=== PATIENT | female | born 1980 | race American Indian/Alaskan Native ===

== ENCOUNTER 2017-02-17 17:14 | Emergency (ER) | payer MEDICAID ==
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
[2017-02-17] MEDS ORDERED: Magnesium Sulfate (4.06 MEQ/ML) 1 GM/2 ML SDV ONE (18:10)
[2017-02-17] MEDS ORDERED: Folic Acid 50 MG/10 ML MDV ONE (18:11)
[2017-02-17] MEDS ORDERED: Thiamine 200 MG/2 ML MDV ONE (18:11)
[2017-02-17] MEDS ORDERED: MVI, Adult with Vitamin K 10 ML SDV IV ONE (18:12)
[2017-02-17] MEDS ORDERED: MVI, Adult with Vitamin K 10 ML, Thiamine 100 MG, Folic Acid 1 MG, Magnesium Sulfate 3 ... IV SCH ×5 (18:15)
[2017-02-17 20:12] VITALS: BP 106/60
== END 2017-02-17 22:30 | disposition home or self-care (01) ==
LOC: JP.ED 17:14
DX: F10.220 Alcohol dependence with intoxication, uncomplicated (principal); Y90.8 Blood alcohol level of 240 mg/100 ml or more; F17.210 Nicotine dependence, cigarettes, uncomplicated
CPT/HCPCS: 36415; 80048; 80305; 81001; 85025; 96365; 96366; 99285; G0480; J3411; J3475; J7040; 99284; J3490; J7030

== ENCOUNTER 2017-04-10 07:12 | Emergency (ER) | payer MEDICAID ==
[2017-04-10] MEDS ORDERED: Ondansetron 4 MG/2 ML SDV IM ONE (08:06)
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
[2017-04-10 08:50] VITALS: BP 110/72
== END 2017-04-10 08:58 | disposition left against medical advice (07) ==
LOC: JP.ED 07:12
DX: F10.129 Alcohol abuse with intoxication, unspecified (principal); Y90.6 Blood alcohol level of 120-199 mg/100 ml; F17.210 Nicotine dependence, cigarettes, uncomplicated
CPT/HCPCS: 36415; 80053; 80305; 81001; 83690; 85025; 96372; 99284; G0480; J2405

== ENCOUNTER 2017-05-02 06:05 | Emergency (ER) | payer MEDICAID ==
[2017-05-02 06:14] VITALS: BP 140/84
[2017-05-02] MEDS ORDERED: LORazepam 2 MG/ML SDV IVPUSH ONE (06:35)
[2017-05-02] MEDS ORDERED: Ondansetron 4 MG/2 ML SDV IVPUSH ONE (06:41)
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
[2017-05-02] MEDS ORDERED: Sodium Chloride 0.9% 1,000 ML IV SCH (06:45)
== END 2017-05-02 08:00 | disposition left against medical advice (07) ==
LOC: JP.ED 06:05
DX: F10.10 Alcohol abuse, uncomplicated (principal); Y90.6 Blood alcohol level of 120-199 mg/100 ml; F17.210 Nicotine dependence, cigarettes, uncomplicated; F41.9 Anxiety disorder, unspecified; F32.9 Major depressive disorder, single episode, unspecified
CPT/HCPCS: 36415; 80053; 80305; 81001; 85025; 87086; 96374; 96375; 99284; G0480

== ENCOUNTER 2017-07-12 01:22 | Emergency (ER) | payer MEDICAID ==
[2017-07-12 02:13] VITALS: BP 117/88
== END 2017-07-12 02:36 | disposition left against medical advice (07) ==
LOC: JP.ED 01:22
DX: Z53.21 Procedure and treatment not carried out due to patient leaving prior to being seen by health care provider (principal)

== ENCOUNTER 2017-07-12 02:50 | Emergency (ER) | payer MEDICAID ==
[2017-07-12 03:02] VITALS: BP 117/88
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
== END 2017-07-12 03:34 ==
LOC: JP.ED 02:50
DX: F10.129 Alcohol abuse with intoxication, unspecified (principal)
CPT/HCPCS: 36415; 99285; G0480

== ENCOUNTER 2017-07-12 04:01 | Emergency (ER) | payer MEDICAID | END 2017-07-12 04:13 | disposition left against medical advice (07) | LOC: JP.ED 04:01 | DX: Z53.21 Procedure and treatment not carried out due to patient leaving prior to being seen by health care provider (principal) ==

== ENCOUNTER 2017-10-29 17:30 | Emergency (ER) | payer SELFPAY ==
[2017-10-29] MEDS ORDERED: Ondansetron 4 MG/2 ML SDV IVPUSH ONE (17:57)
[2017-10-29] MEDS ORDERED: Pantoprazole 40 MG Vial IVPUSH ONE (17:57)
[2017-10-29] MEDS ORDERED: Sodium Chloride 0.9% 1,000 ML IV ONE (17:57)
[2017-10-29] MEDS ORDERED: Sodium Chloride 0.9% 10 ML Syringe FLUSH PRN (17:57)
[2017-10-29 18:08] VITALS: BP 128/102
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
[2017-10-29 18:35] LABS: ACETAMINOPHEN < 2.0 ug/mL (10.0-30.0)
== END 2017-10-29 19:05 | disposition left against medical advice (07) ==
LOC: JP.ED 17:30
DX: F10.10 Alcohol abuse, uncomplicated (principal); Y90.8 Blood alcohol level of 240 mg/100 ml or more
CPT/HCPCS: 36415; 80053; 85025; 87081; 87430; 99283; G0480

== ENCOUNTER 2017-10-29 20:48 | Emergency (ER) | payer SELFPAY ==
[2017-10-29 20:59] VITALS: BP 122/94
[2017-10-29] MEDS ORDERED: Ondansetron 4 MG Tab.DIS PO ONE (21:19)
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
[2017-10-29] MEDS ORDERED: Pantoprazole 40 MG Tab.CR PO ONE (21:41)
[2017-10-30] MEDS ORDERED: Pantoprazole 40 MG Tab.CR PO ONE (21:19)
== END 2017-10-29 22:26 | disposition home or self-care (01) ==
LOC: JP.ED 20:48
DX: F10.10 Alcohol abuse, uncomplicated (principal); Y90.8 Blood alcohol level of 240 mg/100 ml or more; Z87.891 Personal history of nicotine dependence
CPT/HCPCS: 36415; 80305; 81003; 99284; A9270; G0480

== ENCOUNTER 2017-11-01 15:33 | Emergency (ER) | payer SELFPAY ==
[2017-11-01 15:49] VITALS: BP 110/75
== END 2017-11-01 16:24 | disposition left against medical advice (07) ==
LOC: JP.ED 15:33
DX: Z53.20 Procedure and treatment not carried out because of patient's decision for unspecified reasons (principal)

== ENCOUNTER 2017-11-13 13:53 | Emergency (ER) | payer SELFPAY ==
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
[2017-11-13 14:21] VITALS: BP 115/84
== END 2017-11-13 14:56 | disposition home or self-care (01) ==
LOC: JP.ED 13:53
DX: F10.10 Alcohol abuse, uncomplicated (principal); Y90.8 Blood alcohol level of 240 mg/100 ml or more; Z79.899 Other long term (current) drug therapy
CPT/HCPCS: 36415; 80048; 80305; 81001; 85027; 99284; G0480; 99282

== ENCOUNTER 2018-04-26 07:33 | Emergency (ER) | payer MEDICAID, OTHER ==
[2018-04-26 07:38] VITALS: BP 100/59
[2018-04-26] MEDS ORDERED: Ondansetron 4 MG Tab.DIS PO ONE (07:47)
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
[2018-04-26] MEDS ORDERED: Ketorolac 60 MG/2 ML SDV IM ONE (08:36)
== END 2018-04-26 09:59 | disposition home or self-care (01) ==
LOC: JP.ED 07:33
DX: F10.229 Alcohol dependence with intoxication, unspecified (principal); Z79.899 Other long term (current) drug therapy; Z87.891 Personal history of nicotine dependence; Y90.4 Blood alcohol level of 80-99 mg/100 ml
CPT/HCPCS: 36415; 80053; 80305; 81001; 85025; 96372; 99284; A9270; G0480; J1885

== ENCOUNTER 2018-08-08 22:06 | Emergency (ER) | payer MEDICAID ==
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
[2018-08-08] MEDS ORDERED: Aluminum Hydroxide/Magnesium Hydroxide/Simethicone Susp 30 ML Cup PO ONE (22:56)
[2018-08-08] MEDS ORDERED: Acetaminophen 500 MG Tab PO ONE (22:56)
[2018-08-08] MEDS ORDERED: Sodium Chloride 0.9% 10 ML Syringe FLUSH PRN (23:00)
--- NOTE | 2018-08-08 23:31 | CRLCT ---
INDICATION: Seizure TECHNIQUE: CT Head without i.v. contrast. COMPARISON: 01/22/2012 FINDINGS: CSF space: The ventricles are normal for age. Brain: No evidence of mass, acute infarction or hemorrhage is seen. No mass-effect or midline shift is seen. The brain parenchyma is otherwise normal in appearance with preservation of the charles-white matter junction. Calvarium: Left frontal sinus fluid is present without significant interval change. The mastoid air cells are clear. The visualized orbits are grossly unremarkable. The calvarium is unremarkable in appearance with no fractures identified. IMPRESSION: 1. No evidence of acute infarction, intracranial hemorrhage, or mass-effect seen. Dictated by Chris Diaz MD @ 08/08/2018 11:27:38 PM Please note that all CT scans at this facility use dose modulation, iterative reconstruction, and/or weight-based dosing when appropriate to reduce radiation dose to as low as reasonably achievable. Dictated by: Chris Diaz MD @ 08/08/2018 23:30:09 (Electronically Signed)
[2018-08-08] MEDS ORDERED: LORazepam 1 MG Tab PO ONE (23:55)
[2018-08-09] MEDS ORDERED: Magnesium Sulfate/Water 2 GM in Premix Bag 1 BAG IV ONE (00:31)
[2018-08-09] MEDS ORDERED: Magnesium Oxide 400 MG Tab PO ONE (00:31)
[2018-08-09 01:24] VITALS: BP 112/79
== END 2018-08-09 03:41 | disposition home or self-care (01) ==
LOC: JP.ED 22:06
DX: R56.9 Unspecified convulsions (principal); E83.42 Hypomagnesemia
CPT/HCPCS: 36415; 70450; 80048; 83735; 96365; 96366; 99284; A9270; J3475

== ENCOUNTER 2018-12-04 19:36 | Emergency (ER) | payer MEDICAID ==
[2018-12-04] MEDS ORDERED: Ketorolac 30 MG/ML SDV IM ONE (19:41)
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
[2018-12-04 19:54] VITALS: BP 103/78; PULSE 86
== END 2018-12-04 22:46 | disposition home or self-care (01) ==
LOC: JP.ED 19:36
DX: F10.120 Alcohol abuse with intoxication, uncomplicated (principal); G43.001 Migraine without aura, not intractable, with status migrainosus
CPT/HCPCS: 96372; 99284; J1885

== ENCOUNTER 2018-12-22 22:52 | Emergency (ER) | payer MEDICAID ==
[2018-12-22 23:01] VITALS: BP 128/96; PULSE 88
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
== END 2018-12-22 23:46 | disposition other institution (70) ==
LOC: JP.ED 22:52
DX: F10.920 Alcohol use, unspecified with intoxication, uncomplicated (principal); F17.210 Nicotine dependence, cigarettes, uncomplicated
CPT/HCPCS: 36415; 80305-QW; 99285; G0480

== ENCOUNTER 2019-01-05 23:54 | Emergency (ER) | payer MEDICAID ==
[2019-01-06 00:01] VITALS: BP 105/65; PULSE 71
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
[2019-01-06] MEDS ORDERED: Acetaminophen 500 MG Tab PO ONE (09:06)
== END 2019-01-06 09:26 | disposition left against medical advice (07) ==
LOC: JP.ED 23:54
DX: F10.920 Alcohol use, unspecified with intoxication, uncomplicated (principal); F17.210 Nicotine dependence, cigarettes, uncomplicated
CPT/HCPCS: 36415; 80053; 80305; 80320; 84484; 85025; 99285; A9270; G0480

== ENCOUNTER 2019-01-08 18:11 | Emergency (ER) | payer MEDICAID ==
[2019-01-08] MEDS ORDERED: LORazepam 1 MG Tab PO ONE (19:15)
[2019-01-08] MEDS ORDERED: Sodium Chloride 0.9% 1,000 ML IV SCH ×2 (19:30→20:45)
[2019-01-08] MEDS ORDERED: Levofloxacin/Dextrose 5%-Water 500 MG in Premix Bag 1 BAG IV ONE (19:40)
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
[2019-01-08 21:17] VITALS: BP 113/78; PULSE 96
== END 2019-01-08 21:17 | disposition home or self-care (01) ==
LOC: JP.ED 18:11
DX: E86.0 Dehydration (principal); F10.230 Alcohol dependence with withdrawal, uncomplicated; N39.0 Urinary tract infection, site not specified; F17.210 Nicotine dependence, cigarettes, uncomplicated
CPT/HCPCS: 36415; 80053; 81001; 84484; 85025; 87086; 93005; 96365; 99285; A9270; J1956; J7030

== ENCOUNTER 2019-06-25 10:13 | Observation (INO) | payer MEDICAID ==
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
[2019-06-25] MEDS ORDERED: MVI, Adult with Vitamin K 10 ML, Thiamine 200 MG, Folic Acid 1 MG, Magnesium Sulfate 2 ... IV ONE ×10 (11:48→12:30)
[2019-06-25] MEDS ORDERED: Sodium Chloride 0.9% 10 ML Syringe FLUSH PRN (11:48)
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
[2019-06-25] MEDS ORDERED: Ondansetron 4 MG Tab.DIS PO PRN (14:03)
[2019-06-25] MEDS ORDERED: Ketorolac 30 MG/ML SDV IVPUSH PRN (14:03)
[2019-06-25] MEDS ORDERED: Ibuprofen 600 MG Tab PO PRN (14:03)
[2019-06-25] MEDS ORDERED: LORazepam 2 MG/ML SDV IVPUSH PRN (14:03)
[2019-06-25] MEDS ORDERED: LORazepam 2 MG/ML SDV IV SCH (14:03)
[2019-06-25] MEDS ORDERED: Magnesium Hydroxide 400 MG/5 ML Susp 30 ML Cup PO PRN (14:03)
[2019-06-25] MEDS ORDERED: Ondansetron 4 MG/2 ML SDV IV PRN (14:03)
[2019-06-25] MEDS: NS + KCl 20mEq/L 1,000 ML IV SCH ×2 (14:23→22:25)
[2019-06-25] MEDS ORDERED: Pantoprazole 40 MG Vial IV ONE (14:30)
[2019-06-25] MEDS: Thiamine 100 MG Tab PO SCH (14:59)
[2019-06-25] MEDS: Folic Acid 1 MG Tab PO SCH (14:59)
[2019-06-25] MEDS: Gabapentin 400 MG Cap PO SCH ×2 (14:59→23:34)
[2019-06-25] MEDS: LORazepam 1 MG Tab PO SCH (20:12)
[2019-06-25] MEDS: Melatonin 3 MG Tab PO SCH (23:34)
[2019-06-26] MEDS: LORazepam 1 MG Tab PO SCH ×7 (02:54→21:00)
[2019-06-26] MEDS: NS + KCl 20mEq/L 1,000 ML IV SCH (06:27)
[2019-06-26] MEDS: Acetaminophen 325 MG Tab PO PRN ×2 (07:24→17:05)
[2019-06-26] MEDS: Gabapentin 400 MG Cap PO SCH ×3 (08:59→21:00)
[2019-06-26] MEDS: Folic Acid 1 MG Tab PO SCH (08:59)
[2019-06-26] MEDS: Thiamine 100 MG Tab PO SCH (09:00)
--- NOTE | 2019-06-26 11:14 | CR ---
CHEST: Portable 06/25/2019 at 10:56 AM CLINICAL HISTORY:Chest pain COMPARISON:2018 FINDINGS: The heart size, pulmonary vascularity and hilar structures are normal. No infiltrate effusion or pneumothorax is seen. IMPRESSION: No acute cardiopulmonary process.
--- NOTE | 2019-06-26 14:26 | PCM.PN ---
- General Info Date of Service: 06/26/19 Subjective Update: Ms. Herrmann is a 39-year-old woman who was admitted through the emergency department last night because of severe alcohol intoxication. Beds were not available at [facility]. They did agree to accept her in transfer today for detox, but now today unfortunately have no available beds. She has been stable thus far, is starting to show some mild symptoms of alcohol withdrawal. Functional Status: Reports: Tolerating Diet, Ambulating, Urinating - Review of Systems General: Reports: Weakness. Denies: Fever, Chills Pulmonary: Reports: No Symptoms Cardiovascular: Reports: No Symptoms Gastrointestinal: Reports: No Symptoms - Patient Data Vitals - Most Recent: Last Vital Signs Temp 98.6 F 06/26/19 12:00 Pulse 98 06/26/19 14:00 Resp 14 06/26/19 14:00 BP 123/89 06/26/19 14:00 Pulse Ox 97 06/26/19 14:00 Weight - Most Recent: 152 lb I&O - Last 24 Hours: Intake & Output 06/25/19 06/26/19 06/26/19 22:59 06:59 14:59 Intake Total 508 1480 3160 Balance 508 1480 3160 Lab Results Last 24 Hours: Laboratory Results - last 24 hr 06/26/19 06/26/19 06/26/19 Range/Units 04:28 04:28 04:28 WBC 5.7 (4.5-11.0) K/uL RBC 3.74 (3.30-5.50) M/uL Hgb 9.4 L D (12.0-15.0) g/dL Hct 30.2 L (36.0-48.0) % MCV 81 (80-98) fL MCH 25 L (27-31) pg MCHC 31 L (32-36) % Plt Count 97 L (150-400) K/uL Sodium 138 L (140-148) mmol/L Potassium 3.8 (3.6-5.2) mmol/L Chloride 104 (100-108) mmol/L Carbon Dioxide 24 (21-32) mmol/L Anion Gap 13.8 (5.0-14.0) mmol/L BUN 3 L (7-18) mg/dL Creatinine 0.6 (0.6-1.0) mg/dL Est Cr Clr Drug Dosing 104.10 mL/min Estimated GFR (MDRD) > 60 (>60) Glucose 77 (74-106) mg/dL Calcium 7.0 L (8.5-10.1) mg/dL Total Bilirubin 0.5 D (0.2-1.0) mg/dL AST 48 H (15-37) U/L ALT 31 (12-78) U/L Alkaline Phosphatase 86 (46-116) U/L Total Protein 5.8 L (6.4-8.2) g/dL Albumin 2.2 L (3.4-5.0) g/dL Globulin 3.6 H (2.3-3.5) g/dL Albumin/Globulin Ratio 0.6 L (1.2-2.2) Lipase 705 H (73-393) U/L Ethyl Alcohol 87 mg/dL Med Orders - Current: Current Medications Acetaminophen (Tylenol) 650 mg PO Q4H PRN PRN Reason: Pain (Mild 1-3)/fever Last Admin: 06/26/19 07:24 Dose: 650 mg Folic Acid (Folic Acid) 1 mg PO DAILY [facility] Last Admin: 06/26/19 08:59 Dose: 1 mg Gabapentin (Neurontin) 400 mg PO TID [facility] Last Admin: 06/26/19 14:07 Dose: 400 mg Ibuprofen (Motrin) 600 mg PO Q6H PRN PRN Reason: Pain/Fever Last Admin: 06/26/19 03:57 Dose: 600 mg Ketorolac Tromethamine (Toradol) 30 mg IVPUSH Q6H PRN PRN Reason: Pain (moderate 4-6) Stop: 06/30/19 13:46 Last Admin: 06/25/19 19:24 Dose: 30 mg Lorazepam (Ativan) 0.5 mg IVPUSH Q4H PRN PRN Reason: Nausea/Vomiting Lorazepam (Ativan) 0 mg PO ASDIRECTED [facility]; Protocol Last Admin: 06/26/19 14:14 Dose: 1 mg Lorazepam (Ativan) 0 mg IV ASDIRECTED [facility]; Protocol Magnesium Hydroxide (Milk Of Magnesia) 30 ml PO Q12H PRN PRN Reason: Constipation Melatonin (Melatonin) 9 mg PO BEDTIME [facility] Last Admin: 06/25/19 23:34 Dose: Not Given Ondansetron HCl (Zofran Odt) 4 mg PO Q6H PRN PRN Reason: Nausea able to take PO Ondansetron HCl (Zofran) 4 mg IV Q6H PRN PRN Reason: Nausea/Vomiting Senna/Docusate Sodium (Senna Plus) 1 tab PO BID PRN PRN Reason: Constipation Sodium Chloride (Saline Flush) 10 ml FLUSH ASDIRECTED PRN PRN Reason: Keep Vein Open Last Admin: 06/25/19 12:27 Dose: 10 ml Thiamine HCl (Vitamin B-1) 100 mg PO DAILY [facility] Last Admin: 06/26/19 09:00 Dose: 100 mg Discontinued Medications Multivitamins/Minerals 10 ml/Thiamine HCl 200 mg/ Folic Acid 1 mg/ Magnesium Sulfate 2 gm/ Dextrose/Lactated Ringer' s 1,016.2 mls @ 500 mls/hr IV ONETIME ONE Stop: 06/25/19 14:31 Last Admin: 06/25/19 12:27 Dose: 500 mls/hr Potassium Chloride/Sodium Chloride (Normal Saline With 20 Meq Kcl) 1,000 mls @ 125 mls/hr IV ASDIRECTED [facility] Last Admin: 06/26/19 06:27 Dose: 125 mls/hr Pantoprazole Sodium (Protonix Iv) 40 mg IV ONETIME ONE Stop: 06/25/19 14:31 Last Admin: 06/25/19 14:59 Dose: 40 mg - Exam General: Alert, Oriented, Cooperative, Mild Distress Lungs: Clear to Auscultation, Normal Respiratory Effort Cardiovascular: Regular Rate, Regular Rhythm, No Murmurs GI/Abdominal Exam: Soft, Non-Tender, No Organomegaly, No Distention Extremities: Non-Tender, No Pedal Edema Sepsis Event Note - Evaluation Sepsis Screening Result: No Definite Risk - Focused Exam Vital Signs: Vital Signs Temp Pulse Resp BP BP Pulse Ox 06/26/19 14:00 98 14 123/89 97 06/26/19 12:00 98.6 F 94 20 127/84 94 L 06/26/19 08:30 93 20 118/77 06/26/19 07:35 99.1 F 111 H 14 115/73 94 L 06/26/19 07:00 94 L 06/26/19 05:55 90 06/26/19 03:55 99.8 F 89 14 113/72 93 L Date Exam was Performed: 06/26/19 Time Exam was Performed: 14:23 - Problem List Review Problem List Initiated/Reviewed/Updated: Yes - My Orders Last 24 Hours: My Active Orders 06/26/19 10:31 Convert IV to Saline Lock [OM.PC] Routine 06/26/19 Breakfast Regular Diet [DIET] - Plan Plan:: ASSESSMENT AND PLAN Alcohol abuse with severe alcohol intoxication-is more conversant this morning but is starting to show some evidence of alcohol withdrawal -Saline lock -CIWA protocol with lorazepam -3 times daily gabapentin -Melatonin at bedtime -Supplement thiamine and folate -transfer to detox when a bed is available Hypokalemia-resolved Maintenance issues - - DVT prophylaxis -mechanical - GI prophylaxis -IV PPI - Nutrition -clear liquids - Back catheter -not indicated CODE STATUS -full code Admission justification -patient will be referred observation status for hydration and monitoring while she willam up Disposition -I would anticipate discharge to detox at [facility] tomorrow Primary care physician -none
[2019-06-26] MEDS ORDERED: Albuterol 8 GM Inhaler INH PRN (14:29)
[2019-06-26] MEDS: Melatonin 3 MG Tab PO SCH (21:00)
[2019-06-27] MEDS: LORazepam 1 MG Tab PO SCH (07:00)
[2019-06-27 08:04] VITALS: BP 117/86; PULSE 90
[2019-06-27] MEDS: Folic Acid 1 MG Tab PO SCH (08:59)
[2019-06-27] MEDS: Acetaminophen 325 MG Tab PO PRN (08:59)
[2019-06-27] MEDS: Thiamine 100 MG Tab PO SCH (08:59)
[2019-06-27] MEDS: Gabapentin 400 MG Cap PO SCH (08:59)
--- NOTE | 2019-06-27 10:46 | PCM.DCSUM1 ---
Discharge Summary - Hospital Course Brief History: Ms. Herrmann is a 39-year-old woman who was admitted through the emergency department with acute alcohol intoxication and expected alcohol withdrawal. - Discharge Data Discharge Date: 06/27/19 Discharge Disposition: Home, Self-Care 01 Condition: Fair - Referral to Home Health Primary Care Physician: PCP None - Discharge Diagnosis/Problem(s) (1) Alcohol intoxication SNOMED Code(s): 75575808 ICD Code: F10.929 - ALCOHOL USE, UNSPECIFIED WITH INTOXICATION, UNSPECIFIED Status: Acute Current Visit: Yes Qualifiers: Complication of substance-induced condition: uncomplicated Qualified Code(s ): F10.920 - Alcohol use, unspecified with intoxication, uncomplicated (2) Alcohol withdrawal SNOMED Code(s): 744468177 ICD Code: F10.239 - ALCOHOL DEPENDENCE WITH WITHDRAWAL, UNSPECIFIED Status : Acute Current Visit: No - Patient Summary/Data Hospital Course: Ms. Herrmann presented to the emergency room with chest pain. She was extremely intoxicated and is unable to provide much in the way of history because of her severe intoxication. She was able to tell me that her chest has been bothering her for about 2 weeks. When asked to point to where the pain hurts she makes a big [place] around the left side of her chest and left upper quadrant. She is not able to describe the pain. She is not able to tell me the severity of the pain. She is been drinking to try to make it better. She says she is been drinking heavily for a long time but she is not sure just how long. Then for the most part she was not able to answer any other questions because she kept falling asleep. Work-up in the emergency room revealed severe alcohol intoxication with a blood alcohol level of 572. She has mild thrombocytopenia and a mild elevation of her lipase. The plan was for detox but no female beds are available. She will be admitted here for detox. On admission she was given IV fluids for hydration as well as started on gabapentin regimen 400 mg 3 times daily for 4 days then 200 mg 3 times daily for an additional 4 days. She was started on alcohol withdrawal protocol and did show evidence of alcohol withdrawal during hospitalization requiring use of lorazepam. Over the next 48 hours no beds were available at local detox. Plan was to keep her an additional day to wait for an open bed. Patient refused this plan despite encouragement to stay in the hospital for ongoing management. Per her request she will be discharged home and will continue the gabapentin regimen until it is completed. She is encouraged to avoid all alcohol use and a follow-up appointment will be made with primary care within 1 week. Activity will be as tolerated. - Patient Instructions Diet: Usual Diet as Tolerated, No Alcoholic Beverages Activity: As Tolerated Other/Special Instructions: Please schedule follow-up appointment with primary care at [facility], within 1 week. - Discharge Plan *PRESCRIPTION DRUG MONITORING PROGRAM REVIEWED*: Not Applicable *COPY OF PRESCRIPTION DRUG MONITORING REPORT IN PATIENT PAULA: Not Applicable Prescriptions/Med Rec: Gabapentin [Neurontin] 400 mg PO Q8H #48 cap Home Medications: Home Meds Gabapentin [Neurontin] 400 mg PO Q8H #48 cap 06/27/19 [Rx] - Discharge Summary/Plan Comment DC Time >30 min.: No - Patient Data Vitals - Most Recent: Last Vital Signs Temp 98.6 F 06/27/19 08:00 Pulse 90 06/27/19 08:00 Resp 20 06/27/19 08:00 BP 117/86 06/27/19 08:00 Pulse Ox 94 L 06/27/19 08:00 Weight - Most Recent: 152 lb I&O - Last 24 hours: Intake & Output 06/26/19 06/27/19 06/27/19 22:59 06:59 14:59 Intake Total 1500 400 Balance 1500 400 Med Orders - Current: Current Medications Acetaminophen (Tylenol) 650 mg PO Q4H PRN PRN Reason: Pain (Mild 1-3)/fever Last Admin: 06/27/19 08:59 Dose: 650 mg Albuterol (Ventolin Hfa) 0 gm INH Q4H PRN PRN Reason: Dyspnea Folic Acid (Folic Acid) 1 mg PO DAILY [facility] Last Admin: 06/27/19 08:59 Dose: 1 mg Gabapentin (Neurontin) 400 mg PO TID [facility] Last Admin: 06/27/19 08:59 Dose: 400 mg Ibuprofen (Motrin) 600 mg PO Q6H PRN PRN Reason: Pain/Fever Last Admin: 06/26/19 03:57 Dose: 600 mg Ketorolac Tromethamine (Toradol) 30 mg IVPUSH Q6H PRN PRN Reason: Pain (moderate 4-6) Stop: 06/30/19 13:46 Last Admin: 06/25/19 19:24 Dose: 30 mg Lorazepam (Ativan) 0.5 mg IVPUSH Q4H PRN PRN Reason: Nausea/Vomiting Lorazepam (Ativan) 0 mg PO ASDIRECTED [facility]; Protocol Last Admin: 06/27/19 07:00 Dose: 1 mg Lorazepam (Ativan) 0 mg IV ASDIRECTED [facility]; Protocol Magnesium Hydroxide (Milk Of Magnesia) 30 ml PO Q12H PRN PRN Reason: Constipation Melatonin (Melatonin) 9 mg PO BEDTIME [facility] Last Admin: 06/26/19 21:00 Dose: 9 mg Ondansetron HCl (Zofran Odt) 4 mg PO Q6H PRN PRN Reason: Nausea able to take PO Ondansetron HCl (Zofran) 4 mg IV Q6H PRN PRN Reason: Nausea/Vomiting Senna/Docusate Sodium (Senna Plus) 1 tab PO BID PRN PRN Reason: Constipation Sodium Chloride (Saline Flush) 10 ml FLUSH ASDIRECTED PRN PRN Reason: Keep Vein Open Last Admin: 06/25/19 12:27 Dose: 10 ml Thiamine HCl (Vitamin B-1) 100 mg PO DAILY [facility] Last Admin: 06/27/19 08:59 Dose: 100 mg Discontinued Medications Multivitamins/Minerals 10 ml/Thiamine HCl 200 mg/ Folic Acid 1 mg/ Magnesium Sulfate 2 gm/ Dextrose/Lactated Ringer' s 1,016.2 mls @ 500 mls/hr IV ONETIME ONE Stop: 06/25/19 14:31 Last Admin: 06/25/19 12:27 Dose: 500 mls/hr Potassium Chloride/Sodium Chloride (Normal Saline With 20 Meq Kcl) 1,000 mls @ 125 mls/hr IV ASDIRECTED [facility] Last Admin: 06/26/19 06:27 Dose: 125 mls/hr Pantoprazole Sodium (Protonix Iv) 40 mg IV ONETIME ONE Stop: 06/25/19 14:31 Last Admin: 06/25/19 14:59 Dose: 40 mg - Exam General: Reports: Alert, Oriented, Cooperative, Mild Distress Lungs: Reports: Clear to Auscultation, Normal Respiratory Effort Cardiovascular: Reports: Regular Rate, Regular Rhythm, No Murmurs GI/Abdominal Exam: Soft, Non-Tender, No Organomegaly, No Distention
== END 2019-06-27 11:02 | disposition home or self-care (01) ==
LOC: JP.ED 10:13 → JP.ICU 13:41
PROVIDERS: ADMIT Internal Medicine; ATTEND Hospitalist
DX: F10.229 Alcohol dependence with intoxication, unspecified (principal); F10.239 Alcohol dependence with withdrawal, unspecified; R40.0 Somnolence; E87.6 Hypokalemia; R07.9 Chest pain, unspecified; Y90.0 Blood alcohol level of less than 20 mg/100 ml
CPT/HCPCS: 36415; 71045; 80053; 80307; 83690; 84484; 85025; 85027; 93005; 96365; 99285; A9270; C9113; J1885; J3411; J3475; J3480; J7121; 96361; 96366; 96375; G0378; J3490

== ENCOUNTER 2019-07-17 11:45 | Emergency (ER) | payer MEDICAID, OTHER ==
[2019-07-17 12:04] VITALS: BP 115/88; PULSE 108
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
== END 2019-07-17 12:16 ==
LOC: JP.ED 11:45
DX: F10.120 Alcohol abuse with intoxication, uncomplicated (principal)
CPT/HCPCS: 99284

== ENCOUNTER 2019-07-20 03:16 | Emergency (ER) | payer MEDICAID ==
[2019-07-20 03:31] VITALS: BP 124/90; PULSE 87
[2019-07-20] MEDS ORDERED: LORazepam 1 MG Tab PO ONE (03:41)
[2019-07-20] MEDS ORDERED: Aspirin 325 MG Tab.EC PO ONE (03:42)
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
[2019-07-20] MEDS ORDERED: Potassium Chloride 20 MEQ in Premix Bag 1 BAG IV ONE (04:23)
[2019-07-20] MEDS ORDERED: Lactated Ringers 1,000 ML IV ONE (04:23)
[2019-07-20] MEDS ORDERED: Potassium Chloride 20 MEQ Tab.ER PO ONE (04:23)
[2019-07-20] MEDS ORDERED: Sodium Chloride 0.9% 10 ML Syringe FLUSH PRN (04:24)
== END 2019-07-20 07:16 ==
LOC: JP.ED 03:16
DX: R07.89 Other chest pain (principal); F17.210 Nicotine dependence, cigarettes, uncomplicated
CPT/HCPCS: 36415; 80053; 84484; 85025; 93005; 96365; 96366; 99285; A9270; J3480; J7120

== ENCOUNTER 2019-08-21 14:16 | Emergency (ER) | payer MEDICAID, OTHER ==
[2019-08-21 14:22] VITALS: BP 116/77; PULSE 80
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
== END 2019-08-21 18:47 | disposition home or self-care (01) ==
LOC: JP.ED 14:16
DX: F10.120 Alcohol abuse with intoxication, uncomplicated (principal)
CPT/HCPCS: 36415; 80305-QW; 80307; 99282; 99284

== ENCOUNTER 2019-10-18 13:37 | Emergency (ER) | payer MEDICAID ==
[2019-10-18 13:43] VITALS: BP 110/71; PULSE 101
[2019-10-18] MEDS ORDERED: MVI, Adult with Vitamin K 10 ML, Thiamine 200 MG, Folic Acid 1 MG, Magnesium Sulfate 2 ... IV ONE ×5 (13:57)
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
[2019-10-18] MEDS ORDERED: Potassium Chloride 20 MEQ Tab.ER PO ONE (14:37)
[2019-10-18] MEDS ORDERED: Potassium Chloride 20 MEQ in Premix Bag 1 BAG IV ONE (14:37)
[2019-10-18] MEDS ORDERED: Lactated Ringers 1,000 ML IV ONE (16:46)
== END 2019-10-18 18:21 | disposition home or self-care (01) ==
LOC: JP.ED 13:37
DX: F10.129 Alcohol abuse with intoxication, unspecified (principal); F17.210 Nicotine dependence, cigarettes, uncomplicated; Y99.0 Civilian activity done for income or pay
CPT/HCPCS: 36415; 80053; 80305; 80307; 81001; 85025; 85610; 96361; 96365; 96366; 96368; 99284; A9270; J3411; J3475; J3480; J7120; J7121; J3490

== ENCOUNTER 2021-01-27 20:15 | Emergency (ER) | payer MEDICAID ==
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
[2021-01-28 03:59] VITALS: BP 105/76; PULSE 115
[2021-01-28] MEDS ORDERED: LORazepam 2 MG/ML SDV IM ONE (04:56)
== END 2021-01-28 06:02 | disposition home or self-care (01) ==
LOC: JP.ED 20:15
DX: F10.229 Alcohol dependence with intoxication, unspecified (principal); Y90.8 Blood alcohol level of 240 mg/100 ml or more; Z20.822 Contact with and (suspected) exposure to COVID-19
CPT/HCPCS: 36415; 80053; 80307; 85025; 87635; 96372; 99284; J2060; U0002

== ENCOUNTER 2022-01-28 02:03 | Emergency (ER) | payer MEDICAID ==
[2022-01-28] MEDS ORDERED: Sodium Chloride 0.9% 10 ML Syringe FLUSH PRN (02:11)
[2022-01-28] MEDS ORDERED: Lactated Ringers 1,000 ML IV SCH (02:15)
[2022-01-28 02:38] LABS: ESTIMATED GFR 111 mL/min (>60)
[2022-01-28] MEDS ORDERED: NS + KCl 20mEq/L 1,000 ML IV SCH (03:15)
[2022-01-28 06:41] VITALS: BP 97/71; PULSE 84
== END 2022-01-28 08:10 | disposition home or self-care (01) ==
LOC: JP.ED 02:03
DX: E87.6 Hypokalemia (principal); F10.129 Alcohol abuse with intoxication, unspecified
CPT/HCPCS: 36415; 80053; 80305; 80307; 83605; 83690; 83735; 84703; 85025; 96361; 96365; 96366; 99284; J3480; J3490; J7120

== ENCOUNTER 2022-02-16 22:40 | Emergency (ER) | payer MEDICAID ==
[2022-02-16] MEDS ORDERED: MVI, Adult with Vitamin K 10 ML, Thiamine 100 MG, Folic Acid 1 MG, Magnesium Sulfate 2 ... IV ONE ×5 (22:44)
[2022-02-16] MEDS ORDERED: LORazepam 1 MG Tab PO SCH (22:45)
[2022-02-16 23:14] LABS: ESTIMATED GFR 111 mL/min (>60)
[2022-02-16] MEDS ORDERED: Potassium Chloride 10 MEQ in Premix Bag 1 BAG IV ONE (23:20)
[2022-02-16] MEDS ORDERED: Calcium Gluconate 10% 1 GM/10 ML SDV IVPUSH ONE (23:21)
[2022-02-17] MEDS ORDERED: Potassium Chloride 10 MEQ in Premix Bag 1 BAG IV ONE ×4 (00:42)
[2022-02-17 02:48] VITALS: PULSE 83
[2022-02-17 03:20] VITALS: BP 91/64
[2022-02-17] MEDS ORDERED: LORazepam 1 MG Tab PO ONE (06:29)
== END 2022-02-17 06:50 | disposition home or self-care (01) ==
LOC: JP.ED 22:40
DX: F10.220 Alcohol dependence with intoxication, uncomplicated (principal); E87.6 Hypokalemia; E83.51 Hypocalcemia; Y90.8 Blood alcohol level of 240 mg/100 ml or more; Z20.822 Contact with and (suspected) exposure to COVID-19
CPT/HCPCS: 36415; 80053; 80307; 85025; 87635; 96365; 96366; 96367; 96375; 99284; A9270; J0610; J3411; J3475; J3480; J7030; J3490; U0002

== ENCOUNTER 2022-02-26 17:09 | Emergency (ER) | payer MEDICAID ==
[2022-02-26] MEDS ORDERED: LORazepam 0.5 MG Tab PO ONE (18:25)
[2022-02-26 18:39] LABS: ESTIMATED GFR 111 mL/min (>60)
[2022-02-26] MEDS ORDERED: Sodium Chloride 0.9% 1,000 ML IV ONE (18:56)
[2022-02-26] MEDS ORDERED: Folic Acid 1 MG Tab PO ONE (18:56)
[2022-02-26] MEDS ORDERED: Potassium Chloride 20 MEQ Tab.ER PO ONE (18:57)
[2022-02-27] MEDS: LORazepam 1 MG Tab PO SCH ×3 (01:48→09:19)
[2022-02-27 07:24] VITALS: BP 121/86; PULSE 83
== END 2022-02-27 11:40 | disposition left against medical advice (07) ==
LOC: JP.ED 17:09
DX: F10.229 Alcohol dependence with intoxication, unspecified (principal); Z20.822 Contact with and (suspected) exposure to COVID-19; Y90.6 Blood alcohol level of 120-199 mg/100 ml
CPT/HCPCS: 36415; 80053; 80143; 80179; 80305; 80307; 82607; 82746; 83690; 83735; 84443; 85025; 87635; 96360; 99285; A9270; J7030; 99283; U0002

== ENCOUNTER 2022-03-09 16:30 | Emergency (ER) | payer MEDICAID ==
[2022-03-09 17:05] VITALS: BP 125/91; PULSE 105
== END 2022-03-09 17:40 | disposition other institution (70) ==
LOC: JP.ED 16:30
DX: F10.129 Alcohol abuse with intoxication, unspecified (principal); Z86.16 Personal history of COVID-19; Z72.0 Tobacco use; Z20.822 Contact with and (suspected) exposure to COVID-19
CPT/HCPCS: 36415; 80305-QW; 80307; 99283; U0002

== ENCOUNTER 2022-03-23 21:05 | Emergency (ER) | payer MEDICAID ==
[2022-03-24 06:32] VITALS: BP 105/65; PULSE 75
== END 2022-03-24 09:35 | disposition other institution (70) ==
LOC: JP.ED 21:05
DX: F10.220 Alcohol dependence with intoxication, uncomplicated (principal); Z86.16 Personal history of COVID-19; Y90.8 Blood alcohol level of 240 mg/100 ml or more; Z20.822 Contact with and (suspected) exposure to COVID-19
CPT/HCPCS: 36415; 80305-QW; 80307; 93005; 99284; 99285; U0002

== ENCOUNTER 2022-04-24 17:44 | Emergency (ER) | payer MEDICAID ==
[2022-04-25] MEDS ORDERED: LORazepam 2 MG/ML SDV IVPUSH ONE ×2 (00:51→07:05)
[2022-04-25] MEDS ORDERED: Acetaminophen 500 MG Tab PO ONE (09:32)
[2022-04-25] MEDS ORDERED: Ondansetron 4 MG/2 ML SDV IVPUSH ONE (10:38)
[2022-04-25 10:55] VITALS: BP 103/68; PULSE 104
== END 2022-04-25 11:01 ==
LOC: EEVIPCON 17:44 → JP.ED 17:44
DX: S70.01XA Contusion of right hip, initial encounter (principal); S80.02XA Contusion of left knee, initial encounter; F10.229 Alcohol dependence with intoxication, unspecified; Y90.6 Blood alcohol level of 120-199 mg/100 ml; Z20.822 Contact with and (suspected) exposure to COVID-19; W19.XXXA Unspecified fall, initial encounter
CPT/HCPCS: 36415; 70450; 73502; 73562; 73610; 80305; 80307; 87635; 96374; 96375; 96376; 99285; A9270; J2060; J2405; U0002

== ENCOUNTER 2022-05-08 14:29 | Emergency (ER) | payer MEDICAID ==
[2022-05-08] MEDS ORDERED: Sodium Chloride 0.9% 10 ML Syringe FLUSH PRN ×2 (14:32→16:59)
[2022-05-08] MEDS ORDERED: LORazepam 2 MG/ML SDV IVPUSH ONE (14:33)
[2022-05-08 15:13] LABS: ESTIMATED GFR 111 mL/min (>60)
[2022-05-08] MEDS ORDERED: Thiamine 100 MG Tab PO ONE (15:17)
[2022-05-08] MEDS ORDERED: Folic Acid 1 MG Tab PO ONE (15:17)
[2022-05-08] MEDS ORDERED: Multivitamins with Iron/Calcium/Folic Acid/Minerals Tab PO ONE (15:17)
[2022-05-08] MEDS ORDERED: Potassium Chloride 20 MEQ Tab.ER PO ONE (15:38)
[2022-05-08] MEDS ORDERED: Calcium Carbonate 500 MG Tab.Chew PO ONE (15:38)
[2022-05-08] MEDS ORDERED: Sodium Chloride 0.9% 1,000 ML IV ONE (16:59)
[2022-05-08 18:11] VITALS: BP 106/51; PULSE 91
[2022-05-08] MEDS ORDERED: Acetaminophen 500 MG Tab PO ONE (20:47)
== END 2022-05-08 21:30 | disposition other institution (70) ==
LOC: JP.ED 14:29
DX: F10.220 Alcohol dependence with intoxication, uncomplicated (principal); F15.10 Other stimulant abuse, uncomplicated; E86.0 Dehydration; E87.6 Hypokalemia; D64.9 Anemia, unspecified; Z86.16 Personal history of COVID-19; Z72.0 Tobacco use; Y90.8 Blood alcohol level of 240 mg/100 ml or more; Z20.822 Contact with and (suspected) exposure to COVID-19
CPT/HCPCS: 36415; 80053; 80305; 80307; 83690; 85025; 85610; 85730; 87635; 96361; 96374; 99285; A9270; J2060; J3490; J7030; U0002

== ENCOUNTER 2022-06-07 04:03 | Emergency (ER) | payer MEDICAID ==
[2022-06-07] MEDS ORDERED: MVI, Adult with Vitamin K 10 ML, Thiamine 200 MG, Folic Acid 1 MG, Magnesium Sulfate 2 ... IV ONE ×5 (04:06)
[2022-06-07] MEDS ORDERED: LORazepam 2 MG/ML SDV IVPUSH ONE (04:07)
[2022-06-07 04:39] LABS: ESTIMATED GFR 111 mL/min (>60)
[2022-06-07 05:21] LABS: CORONAVIRUS COVID-19 NAA NEGATIVE (NEGATIVE)
[2022-06-07 09:45] VITALS: BP 99/72; PULSE 105
== END 2022-06-07 09:41 ==
LOC: JP.ED 04:03
DX: F10.20 Alcohol dependence, uncomplicated (principal); Z86.16 Personal history of COVID-19; Z20.822 Contact with and (suspected) exposure to COVID-19; Y90.8 Blood alcohol level of 240 mg/100 ml or more
CPT/HCPCS: 0241U; 36415; 80053; 80305; 80307; 83605; 85025; 96365; 96366; 96375; 99285; J2060; J3411; J3475; J7121; J3490

== ENCOUNTER 2022-06-25 16:27 | Emergency (ER) | payer MEDICAID ==
[2022-06-25] MEDS ORDERED: Sodium Chloride 0.9% 1,000 ML IV SCH (17:15)
[2022-06-25] MEDS ORDERED: Potassium Chloride 10 MEQ in Premix Bag 1 BAG IV ONE (17:15)
[2022-06-25 17:36] LABS: BLOOD UREA NITROGEN,BUN 4 mg/dL (7-18); CALCIUM 7.6 mg/dL (8.5-10.1); CARBON DIOXIDE,CO2 29 mmol/L (21-32); CHLORIDE,CL 98 mmol/L (100-108); CREATININE 0.7 mg/dL (0.6-1.0); ESTIMATED GFR 111 mL/min (>60); GLUCOSE RANDOM 86 mg/dL (74-106); MAGNESIUM 0.9 mg/dL (1.8-2.4); POTASSIUM,K 3.5 mmol/L (3.6-5.2); SODIUM,NA 135 mmol/L (140-148)
[2022-06-25 17:37] LABS: ANION GAP 11.5 mmol/L (5.0-14.0)
[2022-06-25] MEDS ORDERED: Magnesium Sulfate/Water 2 GM in Premix Bag 1 BAG IV ONE (18:04)
[2022-06-25] MEDS ORDERED: Magnesium Oxide 400 MG Tab PO ONE (18:10)
[2022-06-25] MEDS ORDERED: LORazepam 1 MG Tab PO SCH (18:15)
[2022-06-25 19:53] VITALS: BP 122/78; PULSE 95
[2022-06-25] MEDS ORDERED: Thiamine 100 MG Tab PO SCH (21:00)
[2022-06-25] MEDS ORDERED: Multivitamins with Iron/Calcium/Folic Acid/Minerals Tab PO SCH (21:00)
[2022-06-25] MEDS ORDERED: Folic Acid 1 MG Tab PO SCH (21:00)
== END 2022-06-25 21:52 | disposition other institution (70) ==
LOC: JP.ED 16:27
DX: E87.6 Hypokalemia (principal); E83.51 Hypocalcemia; F10.20 Alcohol dependence, uncomplicated; R29.0 Tetany; E83.42 Hypomagnesemia; R00.0 Tachycardia, unspecified; F17.210 Nicotine dependence, cigarettes, uncomplicated; Z86.16 Personal history of COVID-19
CPT/HCPCS: 36415; 80048; 82040; 83735; 96365; 96366; 96367; 99285-25; A9270-GY; J3475; J3480; J7030

== ENCOUNTER 2022-07-08 16:52 | Emergency (ER) | payer MEDICAID ==
[2022-07-08 17:04] VITALS: BP 112/76; PULSE 77
== END 2022-07-08 21:35 | disposition home or self-care (01) ==
LOC: JP.ED 16:52
DX: F10.920 Alcohol use, unspecified with intoxication, uncomplicated (principal); Z86.16 Personal history of COVID-19; Y90.8 Blood alcohol level of 240 mg/100 ml or more
CPT/HCPCS: 36415; 80307; 99284

== ENCOUNTER 2022-08-02 00:50 | Emergency (ER) | payer MEDICAID ==
[2022-08-02] MEDS ORDERED: Ketorolac 30 MG/ML SDV IVPUSH ONE (01:07)
[2022-08-02 01:15] LABS: BASOPHILS ABSOLUTE AUTO 0.12 K/uL (0.00-0.10); BASOPHILS PERCENT AUTO 2.1 % (0.1-1.3); EOSINOPHILS PERCENT AUTO 0.2 % (0.0-5.4); HEMATOCRIT 33.5 % (34.3-46.0); HEMOGLOBIN 11.3 g/dL (11.2-15.5); IMMATURE GRAN PERCENT AUTO 0.2 % (0.0-0.7); LYMPHOCYTES ABSOLUTE AUTO 2.23 K/uL (0.8-3.3); LYMPHOCYTES PERCENT AUTO 39.1 % (11.4-47.7); MEAN CORPUSCULAR HEMOGLOBIN 27.9 pg (31.6-35.5); MEAN CORPUSCULAR HGB CONC 33.7 g/dL (31.6-35.5); MEAN CORPUSCULAR VOLUME 82.7 fL (81.4-99.0); MONOCYTES ABSOLUTE AUTO 0.46 K/uL (0.20-0.90); MONOCYTES PERCENT AUTO 8.1 % (3.3-12.6); NEUTROPHILS ABSOLUTE AUTO 2.87 K/uL (1.0-7.6); NEUTROPHILS PERCENT AUTO 50.3 % (40.0-78.1); PLATELET COUNT,PLT 196 K/uL (130-375); RED BLOOD CELL COUNT 4.05 M/uL (3.77-5.24); WHITE BLOOD CELL COUNT,WBC 5.7 K/uL (3.2-11.0)
[2022-08-02] MEDS ORDERED: Sodium Chloride 0.9% 1,000 ML IV SCH (01:15)
[2022-08-02 01:16] LABS: EOSINOPHILS ABSOLUTE AUTO 0.01 K/uL (0.00-0.40); IMMATURE GRAN ABSOLUTE AUTO 0.01 K/uL (0.00-0.23)
[2022-08-02 01:30] LABS: CALCIUM 7.9 mg/dL (8.5-10.1); CREATININE 0.6 mg/dL (0.6-1.0); EST CRCL DRUG DOSING (CG) 105.47 mL/min; POTASSIUM,K 3.1 mmol/L (3.6-5.2)
[2022-08-02 01:31] LABS: ANION GAP 14.1 mmol/L (5.0-14.0)
[2022-08-02] MEDS ORDERED: Iopamidol 612 MG/ML 100 ML Bottle IV ONE (01:36)
[2022-08-02] MEDS ORDERED: Sodium Chloride 0.9% 50 ML IV SCH (01:45)
[2022-08-02] MEDS ORDERED: LORazepam 1 MG Tab PO ONE ×2 (08:53→14:16)
[2022-08-02] MEDS ORDERED: Folic Acid 1 MG Tab PO ONE (08:54)
[2022-08-02] MEDS ORDERED: Multivitamins with Iron/Calcium/Folic Acid/Minerals Tab PO ONE (08:54)
[2022-08-02] MEDS ORDERED: Potassium Chloride 20 MEQ Tab.ER PO ONE (08:54)
[2022-08-02] MEDS ORDERED: Thiamine 100 MG Tab PO ONE (08:54)
[2022-08-02] MEDS ORDERED: Magnesium Oxide 400 MG Tab PO ONE (08:57)
[2022-08-02] MEDS ORDERED: Nicotine 21 MG/24 Hr Patch TRDERM ONE (10:27)
[2022-08-02 11:53] LABS: AMPHETAMINES SCREEN, URINE NEGATIVE (NEGATIVE); BARBITURATE SCREEN,URINE NEGATIVE (NEGATIVE); BENZODIAZEPINES SCREEN,URINE PRESUMPTIVE POSITIVE (NEGATIVE); METHADONE SCREEN, URINE NEGATIVE (NEGATIVE); METHAMPHETAMINES SCREEN, URINE NEGATIVE (NEGATIVE); OXYCODONE SCREEN,URINE NEGATIVE (NEGATIVE); PROPOXYPHENE SCREEN,URINE NEGATIVE (NEGATIVE); THC SCREEN,URINE 50 NG/ML NEGATIVE (NEGATIVE)
[2022-08-02 12:05] VITALS: BP 109/79; PULSE 120
== END 2022-08-02 14:38 ==
LOC: JP.ED 00:50
DX: F10.230 Alcohol dependence with withdrawal, uncomplicated (principal); F15.10 Other stimulant abuse, uncomplicated; E87.6 Hypokalemia; E83.51 Hypocalcemia; Z86.16 Personal history of COVID-19; Z20.822 Contact with and (suspected) exposure to COVID-19; Y90.8 Blood alcohol level of 240 mg/100 ml or more
CPT/HCPCS: 36415; 71260; 80048; 80305; 80307; 85025; 87635; 96361; 96374; 99284; A9270; J1885; J3490; J7030; Q9967; U0002

== ENCOUNTER 2022-08-19 16:08 | Emergency (ER) | payer MEDICAID ==
[2022-08-19] MEDS ORDERED: Sodium Chloride 0.9% 10 ML Syringe FLUSH PRN (16:09)
[2022-08-19 16:42] LABS: A/G RATIO 0.6 (1.2-2.2); ALANINE AMINOTRANSFERASE,ALT 60 U/L (12-78); ALBUMIN 2.8 g/dL (3.4-5.0); ALKALINE PHOSPHATASE 179 U/L (46-116); ASPARTATE AMNIOTRANSFERASE,AST 207 U/L (15-37); BILIRUBIN TOTAL 0.5 mg/dL (0.2-1.0); BLOOD UREA NITROGEN,BUN 2 mg/dL (7-18); CALCIUM 7.9 mg/dL (8.5-10.1); CARBON DIOXIDE,CO2 27 mmol/L (21-32); CHLORIDE,CL 104 mmol/L (100-108); CREATININE 0.5 mg/dL (0.6-1.0); EST CRCL DRUG DOSING (CG) 115.93 mL/min; ESTIMATED GFR 120 mL/min (>60); GLUCOSE RANDOM 89 mg/dL (74-106); MAGNESIUM 1.8 mg/dL (1.8-2.4); PROTEIN TOTAL,TP 7.2 g/dL (6.4-8.2); SODIUM,NA 142 mmol/L (140-148)
[2022-08-19 16:43] LABS: ANION GAP 13.7 mmol/L (5.0-14.0); POTASSIUM,K 2.7 mmol/L (3.6-5.2)
[2022-08-19 18:04] LABS: AMPHETAMINES SCREEN, URINE NEGATIVE (NEGATIVE); BARBITURATE SCREEN,URINE NEGATIVE (NEGATIVE); BENZODIAZEPINES SCREEN,URINE NEGATIVE (NEGATIVE); METHADONE SCREEN, URINE NEGATIVE (NEGATIVE); METHAMPHETAMINES SCREEN, URINE NEGATIVE (NEGATIVE); OXYCODONE SCREEN,URINE NEGATIVE (NEGATIVE); PROPOXYPHENE SCREEN,URINE NEGATIVE (NEGATIVE); THC SCREEN,URINE 50 NG/ML NEGATIVE (NEGATIVE)
[2022-08-19] MEDS ORDERED: Potassium Chloride 20 MEQ Tab.ER PO ONE (19:24)
[2022-08-19] MEDS ORDERED: Multivitamins with Iron/Calcium/Folic Acid/Minerals Tab PO ONE (19:25)
[2022-08-19] MEDS ORDERED: Folic Acid 1 MG Tab PO ONE (19:26)
[2022-08-19] MEDS ORDERED: Thiamine 100 MG Tab PO ONE (19:26)
[2022-08-19] MEDS ORDERED: Lactated Ringers 1,000 ML IV SCH (19:30)
[2022-08-19] MEDS ORDERED: LORazepam 1 MG Tab PO ONE (23:36)
[2022-08-20] MEDS: LORazepam 1 MG Tab PO PRN ×2 (05:26→09:57)
[2022-08-20 06:19] VITALS: BP 109/81; PULSE 78
== END 2022-08-20 10:10 ==
LOC: JP.ED 16:08
DX: F10.220 Alcohol dependence with intoxication, uncomplicated (principal); F15.10 Other stimulant abuse, uncomplicated; Z86.16 Personal history of COVID-19; Y90.8 Blood alcohol level of 240 mg/100 ml or more
CPT/HCPCS: 36415; 80053; 80305; 80307; 83735; 84132; 96360; 99285; A9270; J3490; J7120; 99284

== ENCOUNTER 2022-08-27 15:40 | Emergency (ER) | payer MEDICAID ==
[2022-08-27 15:48] VITALS: PULSE 91
[2022-08-27] MEDS ORDERED: Ketorolac 30 MG/ML SDV IVPUSH ONE (16:09)
[2022-08-27] MEDS ORDERED: LORazepam 2 MG/ML SDV IVPUSH ONE (16:09)
[2022-08-27] MEDS ORDERED: Thiamine 100 MG Tab PO ONE (16:11)
[2022-08-27] MEDS ORDERED: Folic Acid 1 MG Tab PO ONE (16:12)
[2022-08-27] MEDS ORDERED: Multivitamins with Iron/Calcium/Folic Acid/Minerals Tab PO ONE (16:12)
[2022-08-27] MEDS ORDERED: Sodium Chloride 0.9% 1,000 ML IV ONE ×2 (16:13→18:27)
[2022-08-27 16:26] LABS: BASOPHILS PERCENT AUTO 0.3 % (0.1-1.3); HEMOGLOBIN 9.6 g/dL (11.2-15.5); IMMATURE GRAN ABSOLUTE AUTO 0.03 K/uL (0.00-0.23); IMMATURE GRAN PERCENT AUTO 0.4 % (0.0-0.7); LYMPHOCYTES PERCENT AUTO 9.7 % (11.4-47.7); MEAN CORPUSCULAR HEMOGLOBIN 27.6 pg (31.6-35.5); MEAN CORPUSCULAR HGB CONC 33.1 g/dL (31.6-35.5); MEAN CORPUSCULAR VOLUME 83.3 fL (81.4-99.0); MONOCYTES ABSOLUTE AUTO 0.61 K/uL (0.20-0.90); MONOCYTES PERCENT AUTO 8.4 % (3.3-12.6); NEUTROPHILS ABSOLUTE AUTO 5.88 K/uL (1.0-7.6); NEUTROPHILS PERCENT AUTO 81.2 % (40.0-78.1); PLATELET COUNT,PLT 65 K/uL (130-375); RED BLOOD CELL COUNT 3.48 M/uL (3.77-5.24); WHITE BLOOD CELL COUNT,WBC 7.2 K/uL (3.2-11.0)
[2022-08-27 16:29] LABS: BASOPHILS ABSOLUTE AUTO 0.02 K/uL (0.00-0.10)
[2022-08-27 16:40] LABS: CALCIUM 7.7 mg/dL (8.5-10.1); CREATININE 0.7 mg/dL (0.6-1.0); EST CRCL DRUG DOSING (CG) 94.21 mL/min; MAGNESIUM 1.2 mg/dL (1.8-2.4); POTASSIUM,K 3.2 mmol/L (3.6-5.2)
[2022-08-27 16:41] LABS: ANION GAP 19.2 mmol/L (5.0-14.0)
[2022-08-27] MEDS ORDERED: Potassium Chloride 20 MEQ Tab.ER PO ONE (16:44)
[2022-08-27] MEDS ORDERED: Magnesium Sulfate/Water 2 GM in Premix Bag 1 BAG IV ONE (16:44)
[2022-08-27] MEDS ORDERED: Pantoprazole 40 MG Tab.CR PO ONE (16:52)
[2022-08-27 17:33] VITALS: BP 110/79
[2022-08-27] MEDS ORDERED: LORazepam 1 MG Tab PO ONE ×2 (18:19→18:29)
[2022-08-27] MEDS ORDERED: LORazepam 1 MG Tab ONE (21:07)
== END 2022-08-27 21:14 | disposition home or self-care (01) ==
LOC: JP.ED 15:40
DX: F10.930 Alcohol use, unspecified with withdrawal, uncomplicated (principal); R56.9 Unspecified convulsions; M79.81 Nontraumatic hematoma of soft tissue; E87.6 Hypokalemia; E83.42 Hypomagnesemia; Z86.16 Personal history of COVID-19
CPT/HCPCS: 36415; 80048; 80307; 83605; 83735; 85025; 96361; 96365; 96366; 96375; 99285; A9270; J1885; J2060; J3475; J7030

== ENCOUNTER 2022-09-13 17:13 | Emergency (ER) | payer MEDICAID ==
[2022-09-13] MEDS ORDERED: Sodium Chloride 0.9% 10 ML Syringe FLUSH PRN (17:55)
[2022-09-13] MEDS ORDERED: Folic Acid 1 MG Tab PO ONE (17:55)
[2022-09-13] MEDS ORDERED: Thiamine 100 MG Tab PO ONE (17:55)
[2022-09-13] MEDS ORDERED: Multivitamins with Iron/Calcium/Folic Acid/Minerals Tab PO ONE (17:55)
[2022-09-13] MEDS ORDERED: Lactated Ringers 1,000 ML IV ONE ×2 (17:57→18:49)
[2022-09-13] MEDS ORDERED: Calcium Carbonate 500 MG Tab.Chew PO ONE (18:02)
[2022-09-13] MEDS ORDERED: Pantoprazole 40 MG Vial IVPUSH ONE (18:02)
[2022-09-13 18:09] LABS: BASOPHILS ABSOLUTE AUTO 0.07 K/uL (0.00-0.10); EOSINOPHILS ABSOLUTE AUTO 0.06 K/uL (0.00-0.40); EOSINOPHILS PERCENT AUTO 0.8 % (0.0-5.4); HEMATOCRIT 33.5 % (34.3-46.0); HEMOGLOBIN 11.1 g/dL (11.2-15.5); IMMATURE GRAN PERCENT AUTO 0.1 % (0.0-0.7); LYMPHOCYTES ABSOLUTE AUTO 3.09 K/uL (0.8-3.3); LYMPHOCYTES PERCENT AUTO 43.5 % (11.4-47.7); MEAN CORPUSCULAR HEMOGLOBIN 28.1 pg (31.6-35.5); MEAN CORPUSCULAR HGB CONC 33.1 g/dL (31.6-35.5); MEAN CORPUSCULAR VOLUME 84.8 fL (81.4-99.0); MONOCYTES ABSOLUTE AUTO 0.51 K/uL (0.20-0.90); MONOCYTES PERCENT AUTO 7.2 % (3.3-12.6); NEUTROPHILS ABSOLUTE AUTO 3.37 K/uL (1.0-7.6); NEUTROPHILS PERCENT AUTO 47.4 % (40.0-78.1); PLATELET COUNT,PLT 247 K/uL (130-375); RED BLOOD CELL COUNT 3.95 M/uL (3.77-5.24); WHITE BLOOD CELL COUNT,WBC 7.1 K/uL (3.2-11.0)
[2022-09-13 18:10] LABS: IMMATURE GRAN ABSOLUTE AUTO 0.01 K/uL (0.00-0.23)
[2022-09-13 18:15] LABS: AMPHETAMINES SCREEN, URINE NEGATIVE (NEGATIVE); BARBITURATE SCREEN,URINE NEGATIVE (NEGATIVE); BENZODIAZEPINES SCREEN,URINE NEGATIVE (NEGATIVE); METHADONE SCREEN, URINE NEGATIVE (NEGATIVE); METHAMPHETAMINES SCREEN, URINE NEGATIVE (NEGATIVE); OXYCODONE SCREEN,URINE NEGATIVE (NEGATIVE); PROPOXYPHENE SCREEN,URINE NEGATIVE (NEGATIVE); THC SCREEN,URINE 50 NG/ML NEGATIVE (NEGATIVE)
[2022-09-13] MEDS: LORazepam 1 MG Tab PO PRN (18:19)
[2022-09-13 18:31] LABS: A/G RATIO 0.6 (1.2-2.2); ALANINE AMINOTRANSFERASE,ALT 56 U/L (12-78); ALBUMIN 2.5 g/dL (3.4-5.0); ALKALINE PHOSPHATASE 219 U/L (46-116); ASPARTATE AMNIOTRANSFERASE,AST 183 U/L (15-37); BILIRUBIN TOTAL 0.6 mg/dL (0.2-1.0); BLOOD UREA NITROGEN,BUN 3 mg/dL (7-18); CALCIUM 7.8 mg/dL (8.5-10.1); CARBON DIOXIDE,CO2 31 mmol/L (21-32); CHLORIDE,CL 105 mmol/L (100-108); CREATININE 0.6 mg/dL (0.6-1.0); EST CRCL DRUG DOSING (CG) 101.04 mL/min; ESTIMATED GFR 115 mL/min (>60); GLUCOSE RANDOM 102 mg/dL (74-106); MAGNESIUM 1.7 mg/dL (1.8-2.4); PHOSPHORUS 4.1 mg/dL (2.5-4.9); SODIUM,NA 146 mmol/L (140-148)
[2022-09-13 18:46] LABS: ANION GAP 12.5 mmol/L (5.0-14.0); POTASSIUM,K 2.5 mmol/L (3.6-5.2)
[2022-09-13] MEDS ORDERED: Potassium Chloride 20 MEQ Tab.ER PO ONE (18:47)
[2022-09-13] MEDS ORDERED: Magnesium Sulfate/Water 2 GM in Premix Bag 1 BAG IV ONE (18:48)
[2022-09-13] MEDS ORDERED: Potassium Chloride 10 MEQ in Premix Bag 2 BAG IV ONE (18:48)
[2022-09-13] MEDS ORDERED: Potassium Chloride 100 ML ONE (19:05)
[2022-09-14] MEDS: LORazepam 1 MG Tab PO PRN ×2 (01:48→07:33)
[2022-09-14 01:50] VITALS: BP 106/67; PULSE 68
== END 2022-09-14 12:16 ==
LOC: JP.ED 17:13
DX: K70.10 Alcoholic hepatitis without ascites (principal); F10.20 Alcohol dependence, uncomplicated; E86.0 Dehydration; E87.6 Hypokalemia; E83.42 Hypomagnesemia; R51.9 Headache, unspecified; F17.210 Nicotine dependence, cigarettes, uncomplicated; Y90.8 Blood alcohol level of 240 mg/100 ml or more; Z86.16 Personal history of COVID-19; Z90.49 Acquired absence of other specified parts of digestive tract; Z20.822 Contact with and (suspected) exposure to COVID-19
CPT/HCPCS: 36415; 80053; 80305; 80307; 83605; 83735; 84100; 84132; 85025; 87635; 96361; 96365; 96366; 96367; 96375; 99285; A9270; C9113; J3475; J3480; J3490; J7120; U0002

== ENCOUNTER 2022-09-29 17:41 | Emergency (ER) | payer MEDICAID ==
[2022-09-29] MEDS ORDERED: Sodium Chloride 0.9% 1,000 ML IV ONE (19:00)
[2022-09-29 19:13] LABS: BASOPHILS ABSOLUTE AUTO 0.08 K/uL (0.00-0.10); BASOPHILS PERCENT AUTO 1.1 % (0.1-1.3); EOSINOPHILS ABSOLUTE AUTO 0.03 K/uL (0.00-0.40); EOSINOPHILS PERCENT AUTO 0.4 % (0.0-5.4); HEMATOCRIT 33.4 % (34.3-46.0); HEMOGLOBIN 11.4 g/dL (11.2-15.5); IMMATURE GRAN PERCENT AUTO 0.1 % (0.0-0.7); LYMPHOCYTES ABSOLUTE AUTO 3.14 K/uL (0.8-3.3); MEAN CORPUSCULAR HEMOGLOBIN 28.3 pg (31.6-35.5); MEAN CORPUSCULAR HGB CONC 34.1 g/dL (31.6-35.5); MEAN CORPUSCULAR VOLUME 82.9 fL (81.4-99.0); MONOCYTES ABSOLUTE AUTO 0.44 K/uL (0.20-0.90); MONOCYTES PERCENT AUTO 6.2 % (3.3-12.6); NEUTROPHILS ABSOLUTE AUTO 3.44 K/uL (1.0-7.6); NEUTROPHILS PERCENT AUTO 48.2 % (40.0-78.1); PLATELET COUNT,PLT 84 K/uL (130-375); RED BLOOD CELL COUNT 4.03 M/uL (3.77-5.24); WHITE BLOOD CELL COUNT,WBC 7.1 K/uL (3.2-11.0)
[2022-09-29 19:14] LABS: IMMATURE GRAN ABSOLUTE AUTO 0.01 K/uL (0.00-0.23)
[2022-09-29 19:37] LABS: A/G RATIO 0.7 (1.2-2.2); ALANINE AMINOTRANSFERASE,ALT 100 U/L (12-78); ALBUMIN 2.9 g/dL (3.4-5.0); ALKALINE PHOSPHATASE 295 U/L (46-116); ASPARTATE AMNIOTRANSFERASE,AST 358 U/L (15-37); BLOOD UREA NITROGEN,BUN 2 mg/dL (7-18); CALCIUM 7.7 mg/dL (8.5-10.1); CARBON DIOXIDE,CO2 29 mmol/L (21-32); CHLORIDE,CL 98 mmol/L (100-108); CREATININE 0.7 mg/dL (0.6-1.0); EST CRCL DRUG DOSING (CG) 86.58 mL/min; ESTIMATED GFR 111 mL/min (>60); GLUCOSE RANDOM 106 mg/dL (74-106); PROTEIN TOTAL,TP 7.1 g/dL (6.4-8.2); SODIUM,NA 141 mmol/L (140-148)
[2022-09-29 19:40] LABS: ANION GAP 16.4 mmol/L (5.0-14.0); POTASSIUM,K 2.4 mmol/L (3.6-5.2)
[2022-09-29] MEDS ORDERED: Potassium Chloride 20 MEQ Tab.ER PO ONE (19:40)
[2022-09-29] MEDS ORDERED: NS + KCl 20mEq/L 1,000 ML IV SCH (20:45)
[2022-09-29 23:09] LABS: CREATININE 0.6 mg/dL (0.6-1.0); POTASSIUM,K 3.1 mmol/L (3.6-5.2)
[2022-09-29 23:11] LABS: ANION GAP 14.1 mmol/L (5.0-14.0)
[2022-09-29 23:12] LABS: CALCIUM 6.4 mg/dL (8.5-10.1)
[2022-09-29 23:29] LABS: A/G RATIO 0.7 (1.2-2.2); ALBUMIN 2.4 g/dL (3.4-5.0); BILIRUBIN DIRECT 0.45 mg/dL (0.0-0.2); PROTEIN TOTAL,TP 5.8 g/dL (6.4-8.2)
[2022-09-29 23:30] LABS: BILIRUBIN INDIRECT 0.35; BILIRUBIN TOTAL 0.8 mg/dL (0.2-1.0)
[2022-09-29] MEDS ORDERED: Calcium Gluconate 1 GM in Sodium Chloride 0.9% 100 ML IV ONE (23:52)
[2022-09-30] MEDS ORDERED: LORazepam 0.5 MG Tab PO ONE (01:46)
[2022-09-30 06:10] LABS: AMPHETAMINES SCREEN, URINE NEGATIVE (NEGATIVE); BARBITURATE SCREEN,URINE NEGATIVE (NEGATIVE); BENZODIAZEPINES SCREEN,URINE NEGATIVE (NEGATIVE); METHADONE SCREEN, URINE NEGATIVE (NEGATIVE); METHAMPHETAMINES SCREEN, URINE NEGATIVE (NEGATIVE); OXYCODONE SCREEN,URINE NEGATIVE (NEGATIVE); PROPOXYPHENE SCREEN,URINE NEGATIVE (NEGATIVE); THC SCREEN,URINE 50 NG/ML NEGATIVE (NEGATIVE)
[2022-09-30] MEDS ORDERED: LORazepam 1 MG Tab PO ONE ×2 (07:48→14:53)
[2022-09-30] MEDS ORDERED: Ibuprofen 600 MG Tab PO ONE (14:27)
[2022-09-30 17:32] VITALS: BP 128/71; PULSE 89
== END 2022-09-30 17:30 ==
LOC: JP.ED 17:41
DX: F10.10 Alcohol abuse, uncomplicated (principal); Z86.16 Personal history of COVID-19
CPT/HCPCS: 36415; 70450; 70486; 80048; 80053; 80076; 80305; 80307; 85025; 96361; 96365; 96366; 96367; 99283; 99285; A9270; J0612; J3480; J3490; J7030

== ENCOUNTER 2022-09-30 19:11 | Emergency (ER) | payer MEDICAID ==
[2022-09-30 21:11] LABS: A/G RATIO 0.7 (1.2-2.2); ALANINE AMINOTRANSFERASE,ALT 94 U/L (12-78); ALBUMIN 2.8 g/dL (3.4-5.0); ALKALINE PHOSPHATASE 296 U/L (46-116); ASPARTATE AMNIOTRANSFERASE,AST 366 U/L (15-37); BILIRUBIN TOTAL 3.2 mg/dL (0.2-1.0); BLOOD UREA NITROGEN,BUN 2 mg/dL (7-18); CALCIUM 7.3 mg/dL (8.5-10.1); CARBON DIOXIDE,CO2 27 mmol/L (21-32); CHLORIDE,CL 95 mmol/L (100-108); CREATININE 0.7 mg/dL (0.6-1.0); EST CRCL DRUG DOSING (CG) 94.21 mL/min; ESTIMATED GFR 111 mL/min (>60); GLUCOSE RANDOM 86 mg/dL (74-106); MAGNESIUM 0.6 mg/dL (1.8-2.4); POTASSIUM,K 3.4 mmol/L (3.6-5.2); PROTEIN TOTAL,TP 6.9 g/dL (6.4-8.2); SODIUM,NA 133 mmol/L (140-148)
[2022-09-30 21:12] LABS: ANION GAP 14.4 mmol/L (5.0-14.0)
[2022-09-30] MEDS ORDERED: Magnesium Oxide 400 MG Tab PO ONE (22:11)
[2022-10-01] MEDS ORDERED: Acetaminophen 500 MG Tab PO ONE (03:16)
[2022-10-01] MEDS ORDERED: Magnesium Oxide 400 MG Tab PO ONE ×4 (03:36→16:13)
[2022-10-01] MEDS ORDERED: diphenhydrAMINE 25 MG Cap PO ONE (03:40)
[2022-10-01] MEDS: LORazepam 1 MG Tab PO PRN ×2 (03:46→16:40)
[2022-10-01] MEDS ORDERED: Ibuprofen 600 MG Tab PO ONE (16:53)
[2022-10-01 18:12] VITALS: BP 112/79; PULSE 94
== END 2022-10-01 19:29 ==
LOC: JP.ED 19:11
DX: E83.42 Hypomagnesemia (principal); F10.10 Alcohol abuse, uncomplicated; F17.210 Nicotine dependence, cigarettes, uncomplicated; Z86.16 Personal history of COVID-19
CPT/HCPCS: 36415; 80053; 83735; 99285; A9270; 99283

== ENCOUNTER 2022-12-22 09:02 | Emergency (ER) | payer MEDICAID ==
[2022-12-22] MEDS ORDERED: Lactated Ringers 1,000 ML IV ONE (09:30)
[2022-12-22 09:43] LABS: BASOPHILS ABSOLUTE AUTO 0.06 K/uL (0.00-0.10); BASOPHILS PERCENT AUTO 0.8 % (0.1-1.3); HEMATOCRIT 29.9 % (34.3-46.0); HEMOGLOBIN 9.5 g/dL (11.2-15.5); IMMATURE GRAN ABSOLUTE AUTO 0.03 K/uL (0.00-0.23); IMMATURE GRAN PERCENT AUTO 0.4 % (0.0-0.7); LYMPHOCYTES ABSOLUTE AUTO 2.23 K/uL (0.8-3.3); LYMPHOCYTES PERCENT AUTO 28.4 % (11.4-47.7); MEAN CORPUSCULAR HEMOGLOBIN 26.1 pg (31.6-35.5); MEAN CORPUSCULAR HGB CONC 31.8 g/dL (31.6-35.5); MEAN CORPUSCULAR VOLUME 82.1 fL (81.4-99.0); MONOCYTES ABSOLUTE AUTO 0.26 K/uL (0.20-0.90); MONOCYTES PERCENT AUTO 3.3 % (3.3-12.6); NEUTROPHILS ABSOLUTE AUTO 5.26 K/uL (1.0-7.6); NEUTROPHILS PERCENT AUTO 67.1 % (40.0-78.1); PLATELET COUNT,PLT 441 K/uL (130-375); RED BLOOD CELL COUNT 3.64 M/uL (3.77-5.24); WHITE BLOOD CELL COUNT,WBC 7.8 K/uL (3.2-11.0)
[2022-12-22 10:11] LABS: A/G RATIO 0.7 (1.2-2.2); ALANINE AMINOTRANSFERASE,ALT 18 U/L (12-78); ALKALINE PHOSPHATASE 104 U/L (46-116); ANION GAP 15.5 mmol/L (5.0-14.0); ASPARTATE AMNIOTRANSFERASE,AST 30 U/L (15-37); BILIRUBIN TOTAL 0.4 mg/dL (0.2-1.0); BLOOD UREA NITROGEN,BUN 4 mg/dL (7-18); CALCIUM 7.4 mg/dL (8.5-10.1); CARBON DIOXIDE,CO2 24 mmol/L (21-32); CHLORIDE,CL 103 mmol/L (100-108); CREATININE 0.7 mg/dL (0.6-1.0); EST CRCL DRUG DOSING (CG) 94.21 mL/min; ESTIMATED GFR 111 mL/min (>60); GLUCOSE RANDOM 92 mg/dL (74-106); POTASSIUM,K 3.6 mmol/L (3.6-5.2); PROTEIN TOTAL,TP 7.2 g/dL (6.4-8.2); SODIUM,NA 142 mmol/L (140-148)
[2022-12-22 10:43] VITALS: BP 107/70; PULSE 92
== END 2022-12-22 12:00 | disposition home or self-care (01) ==
LOC: JP.ED 09:02
DX: S00.83XA Contusion of other part of head, initial encounter (principal); F10.10 Alcohol abuse, uncomplicated; Y90.8 Blood alcohol level of 240 mg/100 ml or more; Z86.16 Personal history of COVID-19; Y04.0XXA Assault by unarmed brawl or fight, initial encounter
CPT/HCPCS: 36415; 70450; 70450-26; 70486; 70486-26; 71046; 71046-26; 72125; 72125-26; 76377; 76377-26; 80053; 80307; 82550; 83605; 85025; 99283; 99285; J7120

== ENCOUNTER 2022-12-23 11:40 | Emergency (ER) | payer MEDICAID | END 2022-12-23 12:54 | disposition left against medical advice (07) | LOC: JP.ED 11:40 | DX: Z53.21 Procedure and treatment not carried out due to patient leaving prior to being seen by health care provider (principal) ==

== ENCOUNTER 2022-12-30 18:00 | Emergency (ER) | payer MEDICAID ==
[2022-12-30 18:05] VITALS: BP 111/85; PULSE 113
[2022-12-30] MEDS ORDERED: Albuterol/Ipratropium 3.0-0.5 MG/3 ML Neb Soln NEB ONE (18:29)
[2022-12-30] MEDS ORDERED: LORazepam 1 MG Tab PO ONE (18:29)
[2022-12-30 18:33] LABS: BASOPHILS ABSOLUTE AUTO 0.03 K/uL (0.00-0.10); BASOPHILS PERCENT AUTO 0.4 % (0.1-1.3); EOSINOPHILS PERCENT AUTO 0.3 % (0.0-5.4); HEMATOCRIT 26.9 % (34.3-46.0); HEMOGLOBIN 8.7 g/dL (11.2-15.5); IMMATURE GRAN ABSOLUTE AUTO 0.08 K/uL (0.00-0.23); LYMPHOCYTES ABSOLUTE AUTO 1.83 K/uL (0.8-3.3); LYMPHOCYTES PERCENT AUTO 23.8 % (11.4-47.7); MEAN CORPUSCULAR HEMOGLOBIN 25.5 pg (31.6-35.5); MEAN CORPUSCULAR HGB CONC 32.3 g/dL (31.6-35.5); MEAN CORPUSCULAR VOLUME 78.9 fL (81.4-99.0); MONOCYTES ABSOLUTE AUTO 0.56 K/uL (0.20-0.90); MONOCYTES PERCENT AUTO 7.3 % (3.3-12.6); NEUTROPHILS ABSOLUTE AUTO 5.16 K/uL (1.0-7.6); NEUTROPHILS PERCENT AUTO 67.2 % (40.0-78.1); PLATELET COUNT,PLT 132 K/uL (130-375); RED BLOOD CELL COUNT 3.41 M/uL (3.77-5.24); WHITE BLOOD CELL COUNT,WBC 7.7 K/uL (3.2-11.0)
[2022-12-30 18:34] LABS: EOSINOPHILS ABSOLUTE AUTO 0.02 K/uL (0.00-0.40)
[2022-12-30 18:51] LABS: ANION GAP 15.9 mmol/L (5.0-14.0); CALCIUM 7.7 mg/dL (8.5-10.1); CREATININE 0.8 mg/dL (0.6-1.0); EST CRCL DRUG DOSING (CG) 79.11 mL/min; POTASSIUM,K 2.9 mmol/L (3.6-5.2)
[2022-12-30 18:52] LABS: AMPHETAMINES SCREEN, URINE NEGATIVE (NEGATIVE); BARBITURATE SCREEN,URINE NEGATIVE (NEGATIVE); BENZODIAZEPINES SCREEN,URINE NEGATIVE (NEGATIVE); METHADONE SCREEN, URINE NEGATIVE (NEGATIVE); METHAMPHETAMINES SCREEN, URINE NEGATIVE (NEGATIVE); OXYCODONE SCREEN,URINE NEGATIVE (NEGATIVE); PROPOXYPHENE SCREEN,URINE NEGATIVE (NEGATIVE); THC SCREEN,URINE 50 NG/ML NEGATIVE (NEGATIVE)
[2022-12-30] MEDS ORDERED: Potassium Chloride 20 MEQ Tab.ER PO ONE (19:00)
== END 2022-12-30 19:40 | disposition other institution (70) ==
LOC: JP.ED 18:00
DX: F10.939 Alcohol use, unspecified with withdrawal, unspecified (principal); E87.6 Hypokalemia; Z86.16 Personal history of COVID-19
CPT/HCPCS: 36415; 80048; 80305-QW; 80307; 85025; 99284; 99285; A9270-GY

== ENCOUNTER 2023-01-05 11:36 | Emergency (ER) | payer MEDICAID ==
[2023-01-05 12:42] VITALS: BP 104/77; PULSE 71
== END 2023-01-05 12:52 | disposition home or self-care (01) ==
LOC: JP.ED 11:36
DX: F10.120 Alcohol abuse with intoxication, uncomplicated (principal); Z86.16 Personal history of COVID-19
CPT/HCPCS: 99283

== ENCOUNTER 2023-02-04 16:27 | Emergency (ER) | payer MEDICAID ==
[2023-02-04 16:39] LABS: BASOPHILS ABSOLUTE AUTO 0.15 K/uL (0.00-0.10); BASOPHILS PERCENT AUTO 1.4 % (0.1-1.3); EOSINOPHILS PERCENT AUTO 0.1 % (0.0-5.4); HEMATOCRIT 27.9 % (34.3-46.0); HEMOGLOBIN 8.6 g/dL (11.2-15.5); IMMATURE GRAN ABSOLUTE AUTO 0.04 K/uL (0.00-0.23); IMMATURE GRAN PERCENT AUTO 0.4 % (0.0-0.7); LYMPHOCYTES ABSOLUTE AUTO 3.04 K/uL (0.8-3.3); LYMPHOCYTES PERCENT AUTO 28.9 % (11.4-47.7); MEAN CORPUSCULAR HEMOGLOBIN 22.9 pg (31.6-35.5); MEAN CORPUSCULAR HGB CONC 30.8 g/dL (31.6-35.5); MEAN CORPUSCULAR VOLUME 74.4 fL (81.4-99.0); MONOCYTES PERCENT AUTO 7.6 % (3.3-12.6); NEUTROPHILS ABSOLUTE AUTO 6.49 K/uL (1.0-7.6); NEUTROPHILS PERCENT AUTO 61.6 % (40.0-78.1); PLATELET COUNT,PLT 93 K/uL (130-375); RED BLOOD CELL COUNT 3.75 M/uL (3.77-5.24); WHITE BLOOD CELL COUNT,WBC 10.5 K/uL (3.2-11.0)
[2023-02-04 16:43] LABS: EOSINOPHILS ABSOLUTE AUTO 0.01 K/uL (0.00-0.40)
[2023-02-04 16:50] LABS: AMPHETAMINES SCREEN, URINE NEGATIVE (NEGATIVE); BARBITURATE SCREEN,URINE NEGATIVE (NEGATIVE); BENZODIAZEPINES SCREEN,URINE NEGATIVE (NEGATIVE); METHADONE SCREEN, URINE NEGATIVE (NEGATIVE); METHAMPHETAMINES SCREEN, URINE NEGATIVE (NEGATIVE); OXYCODONE SCREEN,URINE NEGATIVE (NEGATIVE); PROPOXYPHENE SCREEN,URINE NEGATIVE (NEGATIVE); THC SCREEN,URINE 50 NG/ML NEGATIVE (NEGATIVE)
[2023-02-04 17:01] LABS: A/G RATIO 0.7 (1.2-2.2); ALANINE AMINOTRANSFERASE,ALT 40 U/L (12-78); ALBUMIN 2.8 g/dL (3.4-5.0); ALKALINE PHOSPHATASE 160 U/L (46-116); ASPARTATE AMNIOTRANSFERASE,AST 93 U/L (15-37); BILIRUBIN TOTAL 0.3 mg/dL (0.2-1.0); BLOOD UREA NITROGEN,BUN 7 mg/dL (7-18); CALCIUM 7.4 mg/dL (8.5-10.1); CARBON DIOXIDE,CO2 28 mmol/L (21-32); CHLORIDE,CL 101 mmol/L (100-108); CREATININE 0.7 mg/dL (0.6-1.0); ESTIMATED GFR 111 mL/min (>60); GLUCOSE RANDOM 130 mg/dL (74-106); PROTEIN TOTAL,TP 6.6 g/dL (6.4-8.2); SODIUM,NA 140 mmol/L (140-148)
[2023-02-04 17:03] LABS: ANION GAP 13.8 mmol/L (5.0-14.0); POTASSIUM,K 2.8 mmol/L (3.6-5.2)
[2023-02-04] MEDS ORDERED: Sodium Chloride 0.9% 10 ML Syringe FLUSH PRN (17:04)
[2023-02-04] MEDS ORDERED: Pantoprazole 40 MG Vial IVPUSH ONE (17:06)
[2023-02-04] MEDS ORDERED: NS with KCl 40mEq 1,000 ML IV SCH (17:15)
[2023-02-04] MEDS ORDERED: Potassium Chloride 20 MEQ Tab.ER PO ONE (17:56)
[2023-02-04 17:57] VITALS: BP 105/70; PULSE 105
== END 2023-02-04 21:20 | disposition left against medical advice (07) ==
LOC: JP.ED 16:27
DX: F10.920 Alcohol use, unspecified with intoxication, uncomplicated (principal); E87.6 Hypokalemia; D64.9 Anemia, unspecified; Z86.16 Personal history of COVID-19
CPT/HCPCS: 36415; 80053; 80305; 80307; 84132; 85025; 96365; 96366; 96375; 99284; A9270; C9113; J3480

== ENCOUNTER 2023-02-25 03:38 | Emergency (ER) | payer MEDICAID ==
[2023-02-25 04:16] LABS: BASOPHILS ABSOLUTE AUTO 0.06 K/uL (0.00-0.10); BASOPHILS PERCENT AUTO 0.9 % (0.1-1.3); EOSINOPHILS PERCENT AUTO 0.1 % (0.0-5.4); HEMATOCRIT 29.5 % (34.3-46.0); HEMOGLOBIN 8.9 g/dL (11.2-15.5); IMMATURE GRAN ABSOLUTE AUTO 0.03 K/uL (0.00-0.23); IMMATURE GRAN PERCENT AUTO 0.4 % (0.0-0.7); LYMPHOCYTES ABSOLUTE AUTO 2.63 K/uL (0.8-3.3); LYMPHOCYTES PERCENT AUTO 37.9 % (11.4-47.7); MEAN CORPUSCULAR HEMOGLOBIN 22.1 pg (31.6-35.5); MEAN CORPUSCULAR HGB CONC 30.2 g/dL (31.6-35.5); MEAN CORPUSCULAR VOLUME 73.2 fL (81.4-99.0); MONOCYTES ABSOLUTE AUTO 0.38 K/uL (0.20-0.90); MONOCYTES PERCENT AUTO 5.5 % (3.3-12.6); NEUTROPHILS ABSOLUTE AUTO 3.83 K/uL (1.0-7.6); NEUTROPHILS PERCENT AUTO 55.2 % (40.0-78.1); PLATELET COUNT,PLT 216 K/uL (130-375); RED BLOOD CELL COUNT 4.03 M/uL (3.77-5.24); WHITE BLOOD CELL COUNT,WBC 6.9 K/uL (3.2-11.0)
[2023-02-25 04:32] LABS: A/G RATIO 0.8 (1.2-2.2); ALANINE AMINOTRANSFERASE,ALT 50 U/L (12-78); ALBUMIN 3.3 g/dL (3.4-5.0); ALKALINE PHOSPHATASE 121 U/L (46-116); ASPARTATE AMNIOTRANSFERASE,AST 114 U/L (15-37); BILIRUBIN TOTAL 0.3 mg/dL (0.2-1.0); BLOOD UREA NITROGEN,BUN 6 mg/dL (7-18); CALCIUM 7.5 mg/dL (8.5-10.1); CARBON DIOXIDE,CO2 25 mmol/L (21-32); CHLORIDE,CL 103 mmol/L (100-108); CREATININE 0.6 mg/dL (0.6-1.0); ESTIMATED GFR 115 mL/min (>60); GLUCOSE RANDOM 96 mg/dL (74-106); POTASSIUM,K 3.1 mmol/L (3.6-5.2); PROTEIN TOTAL,TP 7.7 g/dL (6.4-8.2); SODIUM,NA 142 mmol/L (140-148)
[2023-02-25 04:52] LABS: EOSINOPHILS ABSOLUTE AUTO 0.01 K/uL (0.00-0.40)
[2023-02-25 05:07] LABS: ANION GAP 17.1 mmol/L (5.0-14.0)
[2023-02-25] MEDS: Potassium Chloride 20 MEQ Tab.ER PO ONE (05:19)
[2023-02-25 05:24] VITALS: BP 91/59; PULSE 74
== END 2023-02-25 05:30 | disposition home or self-care (01) ==
LOC: JP.ED 03:38
DX: F10.920 Alcohol use, unspecified with intoxication, uncomplicated (principal); F17.210 Nicotine dependence, cigarettes, uncomplicated; Z86.16 Personal history of COVID-19
CPT/HCPCS: 36415; 80053; 85025; 99284; A9270

== ENCOUNTER 2023-03-03 13:57 | Emergency (ER) | payer MEDICAID ==
[2023-03-03 14:11] LABS: BASOPHILS PERCENT AUTO 1.7 % (0.1-1.3); EOSINOPHILS ABSOLUTE AUTO 0.05 K/uL (0.00-0.40); EOSINOPHILS PERCENT AUTO 0.8 % (0.0-5.4); HEMATOCRIT 26.9 % (34.3-46.0); HEMOGLOBIN 8.1 g/dL (11.2-15.5); IMMATURE GRAN PERCENT AUTO 0.3 % (0.0-0.7); LYMPHOCYTES ABSOLUTE AUTO 2.38 K/uL (0.8-3.3); LYMPHOCYTES PERCENT AUTO 39.9 % (11.4-47.7); MEAN CORPUSCULAR HEMOGLOBIN 22.1 pg (31.6-35.5); MEAN CORPUSCULAR HGB CONC 30.1 g/dL (31.6-35.5); MEAN CORPUSCULAR VOLUME 73.5 fL (81.4-99.0); MONOCYTES ABSOLUTE AUTO 0.49 K/uL (0.20-0.90); MONOCYTES PERCENT AUTO 8.2 % (3.3-12.6); NEUTROPHILS ABSOLUTE AUTO 2.93 K/uL (1.0-7.6); NEUTROPHILS PERCENT AUTO 49.1 % (40.0-78.1); PLATELET COUNT,PLT 148 K/uL (130-375); RED BLOOD CELL COUNT 3.66 M/uL (3.77-5.24)
[2023-03-03 14:14] LABS: IMMATURE GRAN ABSOLUTE AUTO 0.02 K/uL (0.00-0.23)
[2023-03-03 14:28] LABS: BLOOD UREA NITROGEN,BUN 7 mg/dL (7-18); CALCIUM 7.4 mg/dL (8.5-10.1); CARBON DIOXIDE,CO2 29 mmol/L (21-32); CHLORIDE,CL 108 mmol/L (100-108); CREATININE 0.6 mg/dL (0.6-1.0); ESTIMATED GFR 115 mL/min (>60); GLUCOSE RANDOM 104 mg/dL (74-106); POTASSIUM,K 3.5 mmol/L (3.6-5.2); SODIUM,NA 146 mmol/L (140-148)
[2023-03-03 14:29] LABS: ANION GAP 12.5 mmol/L (5.0-14.0)
[2023-03-03 14:50] LABS: A/G RATIO 0.8 (1.2-2.2); BILIRUBIN DIRECT 0.12 mg/dL (0.0-0.2); BILIRUBIN INDIRECT 0.18; BILIRUBIN TOTAL 0.3 mg/dL (0.2-1.0)
[2023-03-03 14:57] VITALS: BP 101/66; PULSE 106
== END 2023-03-03 15:12 | disposition left against medical advice (07) ==
LOC: JP.ED 13:57
DX: F10.920 Alcohol use, unspecified with intoxication, uncomplicated (principal); Z86.16 Personal history of COVID-19
CPT/HCPCS: 36415; 71045; 71045-26; 80048; 80076; 80307; 84703; 85025; 99284

== ENCOUNTER 2023-03-03 15:46 | Emergency (ER) | payer MEDICAID ==
[2023-03-03 16:17] LABS: AMPHETAMINES SCREEN, URINE NEGATIVE (NEGATIVE); BARBITURATE SCREEN,URINE NEGATIVE (NEGATIVE); BENZODIAZEPINES SCREEN,URINE PRESUMPTIVE POSITIVE (NEGATIVE); METHADONE SCREEN, URINE NEGATIVE (NEGATIVE); METHAMPHETAMINES SCREEN, URINE NEGATIVE (NEGATIVE); OXYCODONE SCREEN,URINE NEGATIVE (NEGATIVE); PROPOXYPHENE SCREEN,URINE NEGATIVE (NEGATIVE); THC SCREEN,URINE 50 NG/ML NEGATIVE (NEGATIVE)
[2023-03-03 17:25] VITALS: BP 111/70; PULSE 97
== END 2023-03-03 17:30 | disposition home or self-care (01) ==
LOC: JP.ED 15:46
DX: F10.920 Alcohol use, unspecified with intoxication, uncomplicated (principal); Z86.16 Personal history of COVID-19
CPT/HCPCS: 36415; 80305-QW; 80307; 99283; 99284

== ENCOUNTER 2023-03-20 01:15 | Emergency (ER) | payer MEDICAID ==
[2023-03-20 01:35] LABS: BASOPHILS PERCENT AUTO 1.7 % (0.1-1.3); EOSINOPHILS PERCENT AUTO 0.3 % (0.0-5.4); HEMATOCRIT 30.4 % (34.3-46.0); HEMOGLOBIN 9.1 g/dL (11.2-15.5); IMMATURE GRAN ABSOLUTE AUTO 0.03 K/uL (0.00-0.23); IMMATURE GRAN PERCENT AUTO 0.5 % (0.0-0.7); LYMPHOCYTES ABSOLUTE AUTO 2.25 K/uL (0.8-3.3); LYMPHOCYTES PERCENT AUTO 39.3 % (11.4-47.7); MEAN CORPUSCULAR HGB CONC 29.9 g/dL (31.6-35.5); MEAN CORPUSCULAR VOLUME 73.4 fL (81.4-99.0); MONOCYTES ABSOLUTE AUTO 0.49 K/uL (0.20-0.90); MONOCYTES PERCENT AUTO 8.6 % (3.3-12.6); NEUTROPHILS ABSOLUTE AUTO 2.83 K/uL (1.0-7.6); NEUTROPHILS PERCENT AUTO 49.6 % (40.0-78.1); PLATELET COUNT,PLT 147 K/uL (130-375); RED BLOOD CELL COUNT 4.14 M/uL (3.77-5.24); WHITE BLOOD CELL COUNT,WBC 5.7 K/uL (3.2-11.0)
[2023-03-20 01:37] LABS: EOSINOPHILS ABSOLUTE AUTO 0.02 K/uL (0.00-0.40)
[2023-03-20 01:59] LABS: A/G RATIO 0.7 (1.2-2.2); ALANINE AMINOTRANSFERASE,ALT 43 U/L (12-78); ALBUMIN 3.1 g/dL (3.4-5.0); ALKALINE PHOSPHATASE 146 U/L (46-116); ASPARTATE AMNIOTRANSFERASE,AST 117 U/L (15-37); BILIRUBIN TOTAL 0.4 mg/dL (0.2-1.0); BLOOD UREA NITROGEN,BUN 5 mg/dL (7-18); CALCIUM 7.6 mg/dL (8.5-10.1); CARBON DIOXIDE,CO2 28 mmol/L (21-32); CHLORIDE,CL 103 mmol/L (100-108); CREATININE 0.5 mg/dL (0.6-1.0); EST CRCL DRUG DOSING (CG) 131.68 mL/min; ESTIMATED GFR 120 mL/min (>60); GLUCOSE RANDOM 100 mg/dL (74-106); PROTEIN TOTAL,TP 7.5 g/dL (6.4-8.2); SODIUM,NA 144 mmol/L (140-148)
[2023-03-20 02:00] LABS: ANION GAP 15.9 mmol/L (5.0-14.0); POTASSIUM,K 2.9 mmol/L (3.6-5.2)
[2023-03-20 02:14] LABS: CORONAVIRUS COVID-19 NAA NEGATIVE (NEGATIVE); INFLUENZA A NAA NEGATIVE (NEGATIVE); INFLUENZA B NAA NEGATIVE (NEGATIVE); RESPIRATORY SYNCYTIAL VIR NAA NEGATIVE (NEGATIVE)
[2023-03-20] MEDS: Sodium Chloride 0.9% 1,000 ML IV ONE ×2 (02:30→06:21)
[2023-03-20] MEDS: Potassium Chloride 10 MEQ in Premix Bag 1 BAG IV ONE (02:30)
[2023-03-20] MEDS: Potassium Chloride 20 MEQ Tab.ER PO ONE (02:31)
[2023-03-20 08:12] VITALS: BP 116/81; PULSE 110
== END 2023-03-20 10:11 | disposition home or self-care (01) ==
LOC: JP.ED 01:15
DX: F10.129 Alcohol abuse with intoxication, unspecified (principal); E87.6 Hypokalemia; Z86.16 Personal history of COVID-19; Z90.49 Acquired absence of other specified parts of digestive tract; Z79.899 Other long term (current) drug therapy
CPT/HCPCS: 0241U; 36415; 80053; 80307; 85025; 86140; 96365; 99284; A9270; J3480; J7030

== ENCOUNTER 2023-04-02 14:45 | Emergency (ER) | payer MEDICAID ==
[2023-04-02 15:08] LABS: APPEARANCE,URINE CLEAR (CLEAR); BILIRUBIN,URINE NEGATIVE (NEGATIVE); COLOR,URINE YELLOW (YELLOW); GLUCOSE,URINE NEGATIVE (NEGATIVE); KETONES,URINE NEGATIVE (NEGATIVE); LEUKOCYTE ESTERASE,URINE SMALL (NEGATIVE); NITRITE,URINE NEGATIVE (NEGATIVE); OCCULT BLOOD,URINE NEGATIVE (NEGATIVE); PH,URINE 6.5 (5.0-8.0); PROTEIN,URINE NEGATIVE (NEGATIVE); UROBILINOGEN,URINE 0.2 EU/dL (0.2-1.0)
[2023-04-02 15:15] LABS: AMPHETAMINES SCREEN, URINE NEGATIVE (NEGATIVE); BARBITURATE SCREEN,URINE NEGATIVE (NEGATIVE); BENZODIAZEPINES SCREEN,URINE PRESUMPTIVE POSITIVE (NEGATIVE); METHADONE SCREEN, URINE NEGATIVE (NEGATIVE); METHAMPHETAMINES SCREEN, URINE NEGATIVE (NEGATIVE); OXYCODONE SCREEN,URINE NEGATIVE (NEGATIVE); PROPOXYPHENE SCREEN,URINE NEGATIVE (NEGATIVE); THC SCREEN,URINE 50 NG/ML NEGATIVE (NEGATIVE)
[2023-04-02 15:25] LABS: AMORPHOUS SEDIMENT,URINE FEW; BACTERIA,URINE MODERATE; EPITHELIAL CELLS,URINE MANY; MUCUS,URINE RARE; RBC,URINE 0-5 (0-5)
[2023-04-02 15:30] LABS: BASOPHILS ABSOLUTE AUTO 0.14 K/uL (0.00-0.10); EOSINOPHILS PERCENT AUTO 0.1 % (0.0-5.4); HEMATOCRIT 31.5 % (34.3-46.0); HEMOGLOBIN 9.4 g/dL (11.2-15.5); IMMATURE GRAN PERCENT AUTO 0.3 % (0.0-0.7); LYMPHOCYTES ABSOLUTE AUTO 3.12 K/uL (0.8-3.3); LYMPHOCYTES PERCENT AUTO 44.1 % (11.4-47.7); MEAN CORPUSCULAR HEMOGLOBIN 22.3 pg (31.6-35.5); MEAN CORPUSCULAR HGB CONC 29.8 g/dL (31.6-35.5); MEAN CORPUSCULAR VOLUME 74.8 fL (81.4-99.0); MONOCYTES ABSOLUTE AUTO 0.51 K/uL (0.20-0.90); MONOCYTES PERCENT AUTO 7.2 % (3.3-12.6); NEUTROPHILS ABSOLUTE AUTO 3.28 K/uL (1.0-7.6); NEUTROPHILS PERCENT AUTO 46.3 % (40.0-78.1); PLATELET COUNT,PLT 146 K/uL (130-375); RED BLOOD CELL COUNT 4.21 M/uL (3.77-5.24); WHITE BLOOD CELL COUNT,WBC 7.1 K/uL (3.2-11.0)
[2023-04-02] MEDS: Ondansetron 4 MG/2 ML SDV IVPUSH ONE (15:30)
[2023-04-02] MEDS: Sodium Chloride 0.9% 1,000 ML IV ONE (15:30)
[2023-04-02 15:36] LABS: EOSINOPHILS ABSOLUTE AUTO 0.01 K/uL (0.00-0.40); IMMATURE GRAN ABSOLUTE AUTO 0.02 K/uL (0.00-0.23)
[2023-04-02 16:02] LABS: A/G RATIO 0.7 (1.2-2.2); ALANINE AMINOTRANSFERASE,ALT 40 U/L (12-78); ALBUMIN 3.1 g/dL (3.4-5.0); ALKALINE PHOSPHATASE 170 U/L (46-116); ASPARTATE AMNIOTRANSFERASE,AST 144 U/L (15-37); BILIRUBIN TOTAL 0.4 mg/dL (0.2-1.0); BLOOD UREA NITROGEN,BUN 4 mg/dL (7-18); CALCIUM 7.5 mg/dL (8.5-10.1); CARBON DIOXIDE,CO2 32 mmol/L (21-32); CHLORIDE,CL 102 mmol/L (100-108); CREATININE 0.6 mg/dL (0.6-1.0); EST CRCL DRUG DOSING (CG) 101.04 mL/min; ESTIMATED GFR 115 mL/min (>60); GLUCOSE RANDOM 89 mg/dL (74-106); PROTEIN TOTAL,TP 7.7 g/dL (6.4-8.2); SODIUM,NA 145 mmol/L (140-148)
[2023-04-02 16:03] LABS: ANION GAP 13.9 mmol/L (5.0-14.0); POTASSIUM,K 2.9 mmol/L (3.6-5.2)
[2023-04-02 16:06] LABS: INR 1.2; PROTHROMBIN TIME 12.3 sec (9.2-10.6)
[2023-04-02] MEDS: Ciprofloxacin in D5W 400 MG in Premix Bag 1 BAG IV ONE (16:20)
[2023-04-02] MEDS: NS + KCl 20mEq/L 1,000 ML IV SCH (16:21)
[2023-04-02 16:28] LABS: CORONAVIRUS COVID-19 NAA NEGATIVE (NEGATIVE); INFLUENZA A NAA NEGATIVE (NEGATIVE); INFLUENZA B NAA NEGATIVE (NEGATIVE); RESPIRATORY SYNCYTIAL VIR NAA NEGATIVE (NEGATIVE)
[2023-04-02 21:38] VITALS: BP 109/72; PULSE 95
[2023-04-03 07:33] LABS: BASOPHILS ABSOLUTE AUTO 0.14 K/uL (0.00-0.10); BASOPHILS PERCENT AUTO 2.3 % (0.1-1.3); EOSINOPHILS ABSOLUTE AUTO 0.08 K/uL (0.00-0.40); EOSINOPHILS PERCENT AUTO 1.3 % (0.0-5.4); HEMATOCRIT 27.2 % (34.3-46.0); HEMOGLOBIN 8.2 g/dL (11.2-15.5); IMMATURE GRAN ABSOLUTE AUTO 0.05 K/uL (0.00-0.23); IMMATURE GRAN PERCENT AUTO 0.8 % (0.0-0.7); LYMPHOCYTES ABSOLUTE AUTO 1.69 K/uL (0.8-3.3); LYMPHOCYTES PERCENT AUTO 28.3 % (11.4-47.7); MEAN CORPUSCULAR HEMOGLOBIN 22.5 pg (31.6-35.5); MEAN CORPUSCULAR HGB CONC 30.1 g/dL (31.6-35.5); MEAN CORPUSCULAR VOLUME 74.5 fL (81.4-99.0); MONOCYTES ABSOLUTE AUTO 0.57 K/uL (0.20-0.90); MONOCYTES PERCENT AUTO 9.5 % (3.3-12.6); NEUTROPHILS ABSOLUTE AUTO 3.45 K/uL (1.0-7.6); NEUTROPHILS PERCENT AUTO 57.8 % (40.0-78.1); PLATELET COUNT,PLT 128 K/uL (130-375); RED BLOOD CELL COUNT 3.65 M/uL (3.77-5.24)
[2023-04-03 07:48] LABS: CALCIUM 7.1 mg/dL (8.5-10.1); CREATININE 0.7 mg/dL (0.6-1.0); EST CRCL DRUG DOSING (CG) 86.6 mL/min; POTASSIUM,K 3.8 mmol/L (3.6-5.2)
[2023-04-03] MEDS: Acetaminophen 500 MG Tab PO ONE (08:12)
[2023-04-03] MEDS: Ciprofloxacin 500 MG Tab PO SCH (08:12)
[2023-04-03] MEDS: LORazepam 1 MG Tab PO ONE (08:13)
== END 2023-04-03 09:13 | disposition home or self-care (01) ==
LOC: JP.ED 14:45
DX: F10.129 Alcohol abuse with intoxication, unspecified (principal); E87.6 Hypokalemia; N39.0 Urinary tract infection, site not specified; F17.210 Nicotine dependence, cigarettes, uncomplicated; R06.02 Shortness of breath; Z86.16 Personal history of COVID-19; Y90.8 Blood alcohol level of 240 mg/100 ml or more; Z79.899 Other long term (current) drug therapy
CPT/HCPCS: 0241U; 36415; 80048; 80053; 80305; 80307; 81001; 81025; 83605; 83690; 83735; 85025; 85610; 87086; 96361; 96365; 96366; 96367; 96375; 99283; 99284; A9270; J0744; J2405; J3360; J3480; J7030

== ENCOUNTER 2023-12-25 21:27 | Emergency (ER) | payer MEDICAID ==
[2023-12-25 21:36] VITALS: BP 114/86; PULSE 87
== END 2023-12-25 22:20 ==
LOC: JP.ED 21:27
DX: F10.129 Alcohol abuse with intoxication, unspecified (principal); F17.210 Nicotine dependence, cigarettes, uncomplicated; Z90.49 Acquired absence of other specified parts of digestive tract; Y90.8 Blood alcohol level of 240 mg/100 ml or more; Z86.16 Personal history of COVID-19
CPT/HCPCS: 99283

== ENCOUNTER 2024-01-18 19:46 | Emergency (ER) | payer MEDICAID ==
[2024-01-18 20:10] LABS: BASOPHILS PERCENT AUTO 1.4 % (0.1-1.3); EOSINOPHILS PERCENT AUTO 0.3 % (0.0-5.4); HEMATOCRIT 41.3 % (34.3-46.0); HEMOGLOBIN 14.3 g/dL (11.2-15.5); IMMATURE GRAN PERCENT AUTO 0.1 % (0.0-0.7); LYMPHOCYTES ABSOLUTE AUTO 2.82 K/uL (0.8-3.3); LYMPHOCYTES PERCENT AUTO 40.4 % (11.4-47.7); MEAN CORPUSCULAR HEMOGLOBIN 29.2 pg (31.6-35.5); MEAN CORPUSCULAR HGB CONC 34.6 g/dL (31.6-35.5); MEAN CORPUSCULAR VOLUME 84.5 fL (81.4-99.0); MONOCYTES ABSOLUTE AUTO 0.41 K/uL (0.20-0.90); MONOCYTES PERCENT AUTO 5.9 % (3.3-12.6); NEUTROPHILS ABSOLUTE AUTO 3.62 K/uL (1.0-7.6); NEUTROPHILS PERCENT AUTO 51.9 % (40.0-78.1); PLATELET COUNT,PLT 184 K/uL (130-375); RED BLOOD CELL COUNT 4.89 M/uL (3.77-5.24)
[2024-01-18 20:12] LABS: EOSINOPHILS ABSOLUTE AUTO 0.02 K/uL (0.00-0.40); IMMATURE GRAN ABSOLUTE AUTO 0.01 K/uL (0.00-0.23)
[2024-01-18 20:31] LABS: A/G RATIO 0.8 (1.2-2.2); ALANINE AMINOTRANSFERASE,ALT 38 U/L (12-78); ALBUMIN 3.7 g/dL (3.4-5.0); ALKALINE PHOSPHATASE 132 U/L (46-116); ASPARTATE AMNIOTRANSFERASE,AST 53 U/L (15-37); BILIRUBIN TOTAL 0.4 mg/dL (0.2-1.0); BLOOD UREA NITROGEN,BUN 5 mg/dL (7-18); CALCIUM 8.4 mg/dL (8.5-10.1); CARBON DIOXIDE,CO2 28 mmol/L (21-32); CHLORIDE,CL 103 mmol/L (100-108); CREATININE 0.8 mg/dL (0.6-1.0); ESTIMATED GFR 94 mL/min (>60); GLUCOSE RANDOM 114 mg/dL (74-106); PROTEIN TOTAL,TP 8.1 g/dL (6.4-8.2); SODIUM,NA 145 mmol/L (140-148)
[2024-01-18 20:32] LABS: C-REACTIVE PROTEIN < 0.50 mg/dL (<0.50)
[2024-01-18 20:45] LABS: AMPHETAMINES SCREEN, URINE NEGATIVE (NEGATIVE); BARBITURATE SCREEN,URINE NEGATIVE (NEGATIVE); BENZODIAZEPINES SCREEN,URINE NEGATIVE (NEGATIVE); METHADONE SCREEN, URINE NEGATIVE (NEGATIVE); METHAMPHETAMINES SCREEN, URINE NEGATIVE (NEGATIVE); OXYCODONE SCREEN,URINE NEGATIVE (NEGATIVE); PROPOXYPHENE SCREEN,URINE NEGATIVE (NEGATIVE); THC SCREEN,URINE 50 NG/ML NEGATIVE (NEGATIVE)
[2024-01-19 06:22] VITALS: BP 90/63; PULSE 94
== END 2024-01-19 08:06 | disposition left against medical advice (07) ==
LOC: JP.ED 19:46
DX: F10.129 Alcohol abuse with intoxication, unspecified (principal); S51.812A Laceration without foreign body of left forearm, initial encounter; S51.811A Laceration without foreign body of right forearm, initial encounter; Y90.8 Blood alcohol level of 240 mg/100 ml or more; Z79.899 Other long term (current) drug therapy; Z86.16 Personal history of COVID-19; Y09 Assault by unspecified means
CPT/HCPCS: 36415; 80053; 80305-QW; 80307; 85025; 86140; 99284

== ENCOUNTER 2024-01-19 22:04 | Emergency (ER) | payer MEDICAID ==
[2024-01-20 06:42] VITALS: BP 103/69; PULSE 70
== END 2024-01-20 08:45 | disposition left against medical advice (07) ==
LOC: JP.ED 22:04
DX: F10.10 Alcohol abuse, uncomplicated (principal); F17.210 Nicotine dependence, cigarettes, uncomplicated; Z86.16 Personal history of COVID-19; Z90.49 Acquired absence of other specified parts of digestive tract
CPT/HCPCS: 99284

== ENCOUNTER 2024-01-25 12:22 | Emergency (ER) | payer MEDICAID ==
[2024-01-25 12:38] LABS: BASOPHILS ABSOLUTE AUTO 0.06 K/uL (0.00-0.10); BASOPHILS PERCENT AUTO 0.9 % (0.1-1.3); EOSINOPHILS PERCENT AUTO 0.3 % (0.0-5.4); HEMATOCRIT 40.4 % (34.3-46.0); HEMOGLOBIN 14.3 g/dL (11.2-15.5); IMMATURE GRAN PERCENT AUTO 0.3 % (0.0-0.7); LYMPHOCYTES ABSOLUTE AUTO 2.65 K/uL (0.8-3.3); LYMPHOCYTES PERCENT AUTO 38.1 % (11.4-47.7); MEAN CORPUSCULAR HEMOGLOBIN 29.4 pg (31.6-35.5); MEAN CORPUSCULAR HGB CONC 35.4 g/dL (31.6-35.5); MEAN CORPUSCULAR VOLUME 83.1 fL (81.4-99.0); MONOCYTES ABSOLUTE AUTO 0.58 K/uL (0.20-0.90); MONOCYTES PERCENT AUTO 8.3 % (3.3-12.6); NEUTROPHILS ABSOLUTE AUTO 3.63 K/uL (1.0-7.6); NEUTROPHILS PERCENT AUTO 52.1 % (40.0-78.1); PLATELET COUNT,PLT 97 K/uL (130-375); RED BLOOD CELL COUNT 4.86 M/uL (3.77-5.24)
[2024-01-25 12:39] LABS: EOSINOPHILS ABSOLUTE AUTO 0.02 K/uL (0.00-0.40); IMMATURE GRAN ABSOLUTE AUTO 0.02 K/uL (0.00-0.23)
[2024-01-25 12:57] LABS: AMPHETAMINES SCREEN, URINE NEGATIVE (NEGATIVE); BARBITURATE SCREEN,URINE NEGATIVE (NEGATIVE); BENZODIAZEPINES SCREEN,URINE NEGATIVE (NEGATIVE); METHADONE SCREEN, URINE NEGATIVE (NEGATIVE); METHAMPHETAMINES SCREEN, URINE NEGATIVE (NEGATIVE); OXYCODONE SCREEN,URINE NEGATIVE (NEGATIVE); PROPOXYPHENE SCREEN,URINE NEGATIVE (NEGATIVE); THC SCREEN,URINE 50 NG/ML NEGATIVE (NEGATIVE)
[2024-01-25 13:06] LABS: CALCIUM 8.6 mg/dL (8.5-10.1); CREATININE 0.8 mg/dL (0.6-1.0); EST CRCL DRUG DOSING (CG) 81.59 mL/min
[2024-01-25 13:08] LABS: ANION GAP 14.9 mmol/L (5.0-14.0); POTASSIUM,K 2.9 mmol/L (3.6-5.2)
[2024-01-25] MEDS: Potassium Chloride 20 MEQ Tab.ER PO ONE (13:17)
[2024-01-25] MEDS ORDERED: MVI, Adult with Vitamin K 10 ML, Thiamine 100 MG, Folic Acid 1 MG, Magnesium Sulfate 3 ... IV SCH (14:00)
[2024-01-25] MEDS: MVI, Adult with Vitamin K 10 ML, Thiamine 100 MG, Folic Acid 1 MG, Magnesium Sulfate 3 ... IV ONE (14:32)
[2024-01-25 14:36] VITALS: BP 99/70; PULSE 79
== END 2024-01-25 18:05 | disposition home or self-care (01) ==
LOC: JP.ED 12:22
DX: F10.129 Alcohol abuse with intoxication, unspecified (principal); F17.210 Nicotine dependence, cigarettes, uncomplicated; Z86.16 Personal history of COVID-19; Z90.49 Acquired absence of other specified parts of digestive tract; Y90.8 Blood alcohol level of 240 mg/100 ml or more
CPT/HCPCS: 36415; 80048; 80305; 80307; 85025; 96365; 96366; 99284; A9270; J3411; J7030; J3490

== ENCOUNTER 2024-02-10 14:45 | Emergency (ER) | payer MEDICAID ==
[2024-02-10 15:12] VITALS: BP 107/83; PULSE 98
[2024-02-10 15:42] LABS: BASOPHILS PERCENT AUTO 0.9 % (0.1-1.3); EOSINOPHILS PERCENT AUTO 0.2 % (0.0-5.4); HEMATOCRIT 37.9 % (34.3-46.0); HEMOGLOBIN 12.9 g/dL (11.2-15.5); IMMATURE GRAN ABSOLUTE AUTO 0.03 K/uL (0.00-0.23); IMMATURE GRAN PERCENT AUTO 0.3 % (0.0-0.7); LYMPHOCYTES ABSOLUTE AUTO 4.17 K/uL (0.8-3.3); LYMPHOCYTES PERCENT AUTO 35.9 % (11.4-47.7); MEAN CORPUSCULAR HEMOGLOBIN 28.9 pg (31.6-35.5); MONOCYTES ABSOLUTE AUTO 0.74 K/uL (0.20-0.90); MONOCYTES PERCENT AUTO 6.4 % (3.3-12.6); NEUTROPHILS ABSOLUTE AUTO 6.54 K/uL (1.0-7.6); NEUTROPHILS PERCENT AUTO 56.3 % (40.0-78.1); PLATELET COUNT,PLT 200 K/uL (130-375); RED BLOOD CELL COUNT 4.46 M/uL (3.77-5.24); WHITE BLOOD CELL COUNT,WBC 11.6 K/uL (3.2-11.0)
[2024-02-10 15:43] LABS: EOSINOPHILS ABSOLUTE AUTO 0.02 K/uL (0.00-0.40)
[2024-02-10 15:57] LABS: APPEARANCE,URINE CLEAR (CLEAR); BILIRUBIN,URINE NEGATIVE (NEGATIVE); COLOR,URINE YELLOW (YELLOW); GLUCOSE,URINE NEGATIVE (NEGATIVE); KETONES,URINE NEGATIVE (NEGATIVE); LEUKOCYTE ESTERASE,URINE NEGATIVE (NEGATIVE); NITRITE,URINE NEGATIVE (NEGATIVE); OCCULT BLOOD,URINE NEGATIVE (NEGATIVE); PH,URINE 5.5 (5.0-8.0); PROTEIN,URINE NEGATIVE (NEGATIVE); UROBILINOGEN,URINE 0.2 EU/dL (0.2-1.0)
[2024-02-10 16:07] LABS: AMORPHOUS SEDIMENT,URINE NOT SEEN; BACTERIA,URINE RARE; EPITHELIAL CELLS,URINE FEW; MUCUS,URINE RARE; RBC,URINE NOT SEEN (0-5); WBC,URINE 0-5 (0-5)
[2024-02-10 16:10] LABS: ANION GAP 16.9 mmol/L (5.0-14.0); CARBON DIOXIDE,CO2 26 mmol/L (21-32); CHLORIDE,CL 102 mmol/L (100-108); SODIUM,NA 142 mmol/L (140-148)
[2024-02-10 16:11] LABS: A/G RATIO 0.8 (1.2-2.2); ALANINE AMINOTRANSFERASE,ALT 36 U/L (12-78); ALBUMIN 3.7 g/dL (3.4-5.0); ALKALINE PHOSPHATASE 142 U/L (46-116); ASPARTATE AMNIOTRANSFERASE,AST 54 U/L (15-37); BILIRUBIN TOTAL 0.4 mg/dL (0.2-1.0); BLOOD UREA NITROGEN,BUN 4 mg/dL (7-18); CALCIUM 8.3 mg/dL (8.5-10.1); CREATININE 0.7 mg/dL (0.6-1.0); EST CRCL DRUG DOSING (CG) 93.25 mL/min; ESTIMATED GFR 110 mL/min (>60); GLUCOSE RANDOM 100 mg/dL (74-106); PROTEIN TOTAL,TP 8.2 g/dL (6.4-8.2)
[2024-02-10 16:13] LABS: POTASSIUM,K 2.9 mmol/L (3.6-5.2)
[2024-02-10] MEDS ORDERED: Potassium Chloride 20 MEQ Tab.ER PO ONE (16:13)
[2024-02-10 16:14] LABS: AMPHETAMINES SCREEN, URINE NEGATIVE (NEGATIVE); BARBITURATE SCREEN,URINE NEGATIVE (NEGATIVE); BENZODIAZEPINES SCREEN,URINE NEGATIVE (NEGATIVE); METHADONE SCREEN, URINE NEGATIVE (NEGATIVE); METHAMPHETAMINES SCREEN, URINE NEGATIVE (NEGATIVE); OXYCODONE SCREEN,URINE NEGATIVE (NEGATIVE); PROPOXYPHENE SCREEN,URINE NEGATIVE (NEGATIVE); THC SCREEN,URINE 50 NG/ML NEGATIVE (NEGATIVE)
[2024-02-10] MEDS ORDERED: Folic Acid 1 MG Tab PO ONE (16:14)
[2024-02-10] MEDS ORDERED: Multivitamins with Iron/Calcium/Folic Acid/Minerals Tab PO ONE (16:14)
[2024-02-10] MEDS ORDERED: Vitamin B Complex Tab PO SCH (16:15)
== END 2024-02-10 16:15 | disposition left against medical advice (07) ==
LOC: JP.ED 14:45
DX: F10.220 Alcohol dependence with intoxication, uncomplicated (principal); K70.10 Alcoholic hepatitis without ascites; E87.6 Hypokalemia
CPT/HCPCS: 36415; 80053; 80305-QW; 80307; 81001; 83735; 85025; 99284

== ENCOUNTER 2024-03-27 10:55 | Emergency (ER) | payer MEDICAID ==
[2024-03-27 11:28] VITALS: BP 127/82; PULSE 116
[2024-03-27 12:02] LABS: AMPHETAMINES SCREEN, URINE NEGATIVE (NEGATIVE); BARBITURATE SCREEN,URINE NEGATIVE (NEGATIVE); BENZODIAZEPINES SCREEN,URINE NEGATIVE (NEGATIVE); METHADONE SCREEN, URINE NEGATIVE (NEGATIVE); METHAMPHETAMINES SCREEN, URINE NEGATIVE (NEGATIVE); OXYCODONE SCREEN,URINE NEGATIVE (NEGATIVE); PROPOXYPHENE SCREEN,URINE NEGATIVE (NEGATIVE); THC SCREEN,URINE 50 NG/ML NEGATIVE (NEGATIVE)
== END 2024-03-27 11:45 | disposition left against medical advice (07) ==
LOC: JP.ED 10:55
DX: Z53.21 Procedure and treatment not carried out due to patient leaving prior to being seen by health care provider (principal)
CPT/HCPCS: 80305-QW

== ENCOUNTER 2024-07-05 20:51 | Emergency (ER) | payer MEDICAID ==
[2024-07-05 20:56] VITALS: BP 98/61; PULSE 88
[2024-07-05 21:13] LABS: BASOPHILS PERCENT AUTO 0.9 % (0.1-1.3); EOSINOPHILS ABSOLUTE AUTO 0.05 K/uL (0.00-0.40); EOSINOPHILS PERCENT AUTO 0.4 % (0.0-5.4); HEMATOCRIT 40.9 % (34.3-46.0); HEMOGLOBIN 14.2 g/dL (11.2-15.5); IMMATURE GRAN ABSOLUTE AUTO 0.03 K/uL (0.00-0.23); IMMATURE GRAN PERCENT AUTO 0.3 % (0.0-0.7); LYMPHOCYTES ABSOLUTE AUTO 4.93 K/uL (0.8-3.3); LYMPHOCYTES PERCENT AUTO 43.6 % (11.4-47.7); MEAN CORPUSCULAR HEMOGLOBIN 30.4 pg (31.6-35.5); MEAN CORPUSCULAR HGB CONC 34.7 g/dL (31.6-35.5); MEAN CORPUSCULAR VOLUME 87.6 fL (81.4-99.0); MONOCYTES ABSOLUTE AUTO 0.66 K/uL (0.20-0.90); MONOCYTES PERCENT AUTO 5.8 % (3.3-12.6); NEUTROPHILS ABSOLUTE AUTO 5.54 K/uL (1.0-7.6); PLATELET COUNT,PLT 301 K/uL (130-375); RED BLOOD CELL COUNT 4.67 M/uL (3.77-5.24); WHITE BLOOD CELL COUNT,WBC 11.3 K/uL (3.2-11.0)
[2024-07-05] MEDS: Sodium Chloride 0.9% 1,000 ML IV SCH ×2 (21:23→22:24)
[2024-07-05 21:37] LABS: A/G RATIO 0.8 (1.2-2.2); ALANINE AMINOTRANSFERASE,ALT 43 U/L (12-78); ALBUMIN 3.2 g/dL (3.4-5.0); ALKALINE PHOSPHATASE 143 U/L (46-116); ANION GAP 14.8 mmol/L (5.0-14.0); ASPARTATE AMNIOTRANSFERASE,AST 47 U/L (15-37); BILIRUBIN TOTAL 0.6 mg/dL (0.2-1.0); BLOOD UREA NITROGEN,BUN 7 mg/dL (7-18); CALCIUM 8.2 mg/dL (8.5-10.1); CARBON DIOXIDE,CO2 25 mmol/L (21-32); CHLORIDE,CL 107 mmol/L (100-108); CREATININE 0.8 mg/dL (0.6-1.0); EST CRCL DRUG DOSING (CG) 67.72 mL/min; ESTIMATED GFR 93 mL/min (>60); GLUCOSE RANDOM 103 mg/dL (74-106); POTASSIUM,K 3.6 mmol/L (3.6-5.2); PROTEIN TOTAL,TP 7.3 g/dL (6.4-8.2); SODIUM,NA 147 mmol/L (140-148)
[2024-07-05] MEDS: Ibuprofen 600 MG Tab PO ONE (23:20)
[2024-07-06 00:41] LABS: APPEARANCE,URINE SLIGHTLY CLOUDY (CLEAR); BILIRUBIN,URINE NEGATIVE (NEGATIVE); COLOR,URINE YELLOW (YELLOW); GLUCOSE,URINE NEGATIVE (NEGATIVE); KETONES,URINE NEGATIVE (NEGATIVE); LEUKOCYTE ESTERASE,URINE NEGATIVE (NEGATIVE); NITRITE,URINE NEGATIVE (NEGATIVE); OCCULT BLOOD,URINE NEGATIVE (NEGATIVE); PROTEIN,URINE 30 mg/dL (NEGATIVE)
[2024-07-06 00:55] LABS: AMORPHOUS SEDIMENT,URINE NOT SEEN; BACTERIA,URINE FEW; EPITHELIAL CELLS,URINE FEW; MUCUS,URINE FEW; RBC,URINE 0-5 (0-5); WBC,URINE 0-5 (0-5)
[2024-07-06] MEDS: Calcium Carbonate 500 MG Tab.Chew PO ONE (02:14)
[2024-07-06] MEDS: Alum Hydrox/Mag Hydrox/Simeth 15 ML, Lidocaine 2% 15 ML PO ONE (04:17)
[2024-07-06] MEDS: Famotidine 20 MG Tab PO ONE (04:17)
[2024-07-06] MEDS: Ondansetron 4 MG/2 ML SDV IVPUSH ONE (05:54)
== END 2024-07-06 06:38 | disposition left against medical advice (07) ==
LOC: JP.ED 20:51
DX: F10.129 Alcohol abuse with intoxication, unspecified (principal); E86.0 Dehydration; Z86.16 Personal history of COVID-19; F17.200 Nicotine dependence, unspecified, uncomplicated; Z90.49 Acquired absence of other specified parts of digestive tract
CPT/HCPCS: 36415; 80053; 80307; 81001; 83690; 85025; 86140; 96361; 96374; 99283; 99284; A9270; J2405; J7030

== ENCOUNTER 2024-08-26 14:14 | Emergency (ER) | payer MEDICAID ==
[2024-08-26 14:36] LABS: BASOPHILS ABSOLUTE AUTO 0.04 K/uL (0.00-0.10); BASOPHILS PERCENT AUTO 0.5 % (0.1-1.3); EOSINOPHILS ABSOLUTE AUTO 0.17 K/uL (0.00-0.40); EOSINOPHILS PERCENT AUTO 2.3 % (0.0-5.4); IMMATURE GRAN ABSOLUTE AUTO 0.06 K/uL (0.00-0.23); IMMATURE GRAN PERCENT AUTO 0.8 % (0.0-0.7); LYMPHOCYTES ABSOLUTE AUTO 1.42 K/uL (0.8-3.3); LYMPHOCYTES PERCENT AUTO 18.9 % (11.4-47.7); MONOCYTES ABSOLUTE AUTO 0.77 K/uL (0.20-0.90); MONOCYTES PERCENT AUTO 10.2 % (3.3-12.6); NEUTROPHILS ABSOLUTE AUTO 5.06 K/uL (1.0-7.6); NEUTROPHILS PERCENT AUTO 67.3 % (40.0-78.1); PLATELET COUNT,PLT 88 K/uL (130-375); RED BLOOD CELL COUNT 3.88 M/uL (3.77-5.24); WHITE BLOOD CELL COUNT,WBC 7.5 K/uL (3.2-11.0)
[2024-08-26 14:53] LABS: INR 1.7
[2024-08-26 14:57] LABS: A/G RATIO 0.9 (1.2-2.2); ALANINE AMINOTRANSFERASE,ALT 64 U/L (12-78); ASPARTATE AMNIOTRANSFERASE,AST 136 U/L (15-37); BILIRUBIN TOTAL 5.8 mg/dL (0.2-1.0); BLOOD UREA NITROGEN,BUN 5 mg/dL (7-18); CARBON DIOXIDE,CO2 30 mmol/L (21-32); CHLORIDE,CL 91 mmol/L (100-108); CREATININE 0.9 mg/dL (0.6-1.0); ESTIMATED GFR 81 mL/min (>60); GLUCOSE RANDOM 102 mg/dL (74-106); PROTEIN TOTAL,TP 6.4 g/dL (6.4-8.2); SODIUM,NA 133 mmol/L (140-148)
[2024-08-26 15:03] LABS: POTASSIUM,K 2.3 mmol/L (3.6-5.2)
[2024-08-26] MEDS: Potassium Chloride 10 MEQ in Premix Bag 4 BAG IV SCH (15:25)
[2024-08-26] MEDS: Potassium Chloride 20 MEQ Tab.ER PO ONE (15:25)
[2024-08-26] MEDS: LORazepam 2 MG/ML SDV IVPUSH ONE (15:26)
[2024-08-26] MEDS: Magnesium Sulfate 2 GM/50 mL 2 GM in Premix Bag 1 BAG IV ONE (17:08)
[2024-08-26 18:43] LABS: APPEARANCE,URINE CLEAR (CLEAR); GLUCOSE,URINE NEGATIVE (NEGATIVE); OCCULT BLOOD,URINE NEGATIVE (NEGATIVE)
[2024-08-26 18:52] LABS: AMPHETAMINES SCREEN, URINE NEGATIVE (NEGATIVE); EPITHELIAL CELLS,URINE FEW; METHADONE SCREEN, URINE NEGATIVE (NEGATIVE); METHAMPHETAMINES SCREEN, URINE NEGATIVE (NEGATIVE); OXYCODONE SCREEN,URINE NEGATIVE (NEGATIVE); PROPOXYPHENE SCREEN,URINE NEGATIVE (NEGATIVE); THC SCREEN,URINE 50 NG/ML NEGATIVE (NEGATIVE)
[2024-08-26 19:10] VITALS: BP 96/78; PULSE 95
== END 2024-08-26 19:26 | disposition left against medical advice (07) ==
LOC: JP.ED 14:14
DX: F10.239 Alcohol dependence with withdrawal, unspecified (principal); E83.42 Hypomagnesemia; E87.5 Hyperkalemia; Y90.9 Presence of alcohol in blood, level not specified
CPT/HCPCS: 36415; 80053; 80305; 80307; 81001; 83605; 83735; 84132; 85025; 85610; 96365; 96366; 96368; 96375; 99285; A9270; J2060; J3475; J3480; J7030; 99284

== ENCOUNTER 2024-10-09 21:54 | Emergency (ER) | payer MEDICAID ==
[2024-10-09 22:13] LABS: BASOPHILS ABSOLUTE AUTO 0.06 K/uL (0.00-0.10); BASOPHILS PERCENT AUTO 0.7 % (0.1-1.3); EOSINOPHILS ABSOLUTE AUTO 0.03 K/uL (0.00-0.40); EOSINOPHILS PERCENT AUTO 0.4 % (0.0-5.4); IMMATURE GRAN PERCENT AUTO 0.2 % (0.0-0.7); LYMPHOCYTES ABSOLUTE AUTO 4.29 K/uL (0.8-3.3); LYMPHOCYTES PERCENT AUTO 50.1 % (11.4-47.7); MONOCYTES ABSOLUTE AUTO 0.50 K/uL (0.20-0.90); MONOCYTES PERCENT AUTO 5.8 % (3.3-12.6); NEUTROPHILS ABSOLUTE AUTO 3.66 K/uL (1.0-7.6); NEUTROPHILS PERCENT AUTO 42.8 % (40.0-78.1); PLATELET COUNT,PLT 261 K/uL (130-375); RED BLOOD CELL COUNT 4.55 M/uL (3.77-5.24); WHITE BLOOD CELL COUNT,WBC 8.6 K/uL (3.2-11.0)
[2024-10-09 22:36] LABS: A/G RATIO 0.9 (1.2-2.2); ALANINE AMINOTRANSFERASE,ALT 53 U/L (12-78); ASPARTATE AMNIOTRANSFERASE,AST 71 U/L (15-37); BILIRUBIN TOTAL 0.7 mg/dL (0.2-1.0); BLOOD UREA NITROGEN,BUN 2 mg/dL (7-18); CARBON DIOXIDE,CO2 27 mmol/L (21-32); CHLORIDE,CL 103 mmol/L (100-108); CREATININE 0.6 mg/dL (0.6-1.0); ESTIMATED GFR 113 mL/min (>60); GLUCOSE RANDOM 112 mg/dL (74-106); PROTEIN TOTAL,TP 8.0 g/dL (6.4-8.2); SODIUM,NA 143 mmol/L (140-148)
[2024-10-09 22:39] LABS: POTASSIUM,K 2.9 mmol/L (3.6-5.2)
[2024-10-09 22:40] LABS: AMPHETAMINES SCREEN, URINE NEGATIVE (NEGATIVE); METHADONE SCREEN, URINE NEGATIVE (NEGATIVE); METHAMPHETAMINES SCREEN, URINE NEGATIVE (NEGATIVE); OXYCODONE SCREEN,URINE NEGATIVE (NEGATIVE); PROPOXYPHENE SCREEN,URINE NEGATIVE (NEGATIVE); THC SCREEN,URINE 50 NG/ML NEGATIVE (NEGATIVE)
[2024-10-09 22:42] VITALS: BP 117/84; PULSE 87
[2024-10-09 22:42] LABS: IMMATURE GRAN ABSOLUTE AUTO 0.02 K/uL (0.00-0.23)
[2024-10-09] MEDS: Potassium Chloride 20 MEQ Tab.ER PO ONE (23:09)
== END 2024-10-10 07:28 | disposition left against medical advice (07) ==
LOC: JP.ED 21:54
DX: F10.129 Alcohol abuse with intoxication, unspecified (principal); E86.0 Dehydration; Z86.16 Personal history of COVID-19; Z90.49 Acquired absence of other specified parts of digestive tract; Z79.899 Other long term (current) drug therapy
CPT/HCPCS: 36415; 80053; 80305; 80307; 83735; 84132; 85025; 96365; 96366; 99283; 99284; A9270; J3480; J7030

== ENCOUNTER 2024-12-28 22:29 | Emergency (ER) | payer MEDICAID ==
[2024-12-28 23:10] LABS: AMPHETAMINES SCREEN, URINE PRESUMPTIVE POSITIVE (NEGATIVE); METHADONE SCREEN, URINE NEGATIVE (NEGATIVE); METHAMPHETAMINES SCREEN, URINE NEGATIVE (NEGATIVE); OXYCODONE SCREEN,URINE NEGATIVE (NEGATIVE); PROPOXYPHENE SCREEN,URINE NEGATIVE (NEGATIVE); THC SCREEN,URINE 50 NG/ML NEGATIVE (NEGATIVE)
[2024-12-29 07:31] VITALS: BP 107/87; PULSE 93
[2024-12-29] MEDS: Ondansetron 4 MG Tab.DIS PO ONE (07:40)
== END 2024-12-29 07:46 | disposition other institution (70) ==
LOC: JP.ED 22:29
DX: F10.20 Alcohol dependence, uncomplicated (principal); F15.20 Other stimulant dependence, uncomplicated; F17.200 Nicotine dependence, unspecified, uncomplicated; Z86.16 Personal history of COVID-19; Z90.49 Acquired absence of other specified parts of digestive tract; Y90.8 Blood alcohol level of 240 mg/100 ml or more
CPT/HCPCS: 36415; 80305; 80307; 99284; Q0162

== ENCOUNTER 2025-01-23 08:41 | Emergency (ER) | payer MEDICAID ==
[2025-01-23 09:12] LABS: BASOPHILS ABSOLUTE AUTO 0.08 K/uL (0.00-0.10); BASOPHILS PERCENT AUTO 0.9 % (0.1-1.3); EOSINOPHILS ABSOLUTE AUTO 0.04 K/uL (0.00-0.40); EOSINOPHILS PERCENT AUTO 0.4 % (0.0-5.4); IMMATURE GRAN PERCENT AUTO 0.2 % (0.0-0.7); LYMPHOCYTES ABSOLUTE AUTO 1.84 K/uL (0.8-3.3); LYMPHOCYTES PERCENT AUTO 20.4 % (11.4-47.7); MONOCYTES ABSOLUTE AUTO 0.78 K/uL (0.20-0.90); MONOCYTES PERCENT AUTO 8.7 % (3.3-12.6); NEUTROPHILS ABSOLUTE AUTO 6.25 K/uL (1.0-7.6); NEUTROPHILS PERCENT AUTO 69.4 % (40.0-78.1); PLATELET COUNT,PLT 131 K/uL (130-375); RED BLOOD CELL COUNT 4.83 M/uL (3.77-5.24); WHITE BLOOD CELL COUNT,WBC 9.0 K/uL (3.2-11.0)
[2025-01-23 09:18] LABS: IMMATURE GRAN ABSOLUTE AUTO 0.02 K/uL (0.00-0.23)
[2025-01-23 09:21] LABS: APPEARANCE,URINE SLIGHTLY CLOUDY (CLEAR); GLUCOSE,URINE NEGATIVE (NEGATIVE); OCCULT BLOOD,URINE TRACE-INTACT (NEGATIVE)
[2025-01-23 09:28] LABS: AMPHETAMINES SCREEN, URINE NEGATIVE (NEGATIVE); METHADONE SCREEN, URINE NEGATIVE (NEGATIVE); METHAMPHETAMINES SCREEN, URINE NEGATIVE (NEGATIVE); OXYCODONE SCREEN,URINE NEGATIVE (NEGATIVE); PROPOXYPHENE SCREEN,URINE NEGATIVE (NEGATIVE); THC SCREEN,URINE 50 NG/ML NEGATIVE (NEGATIVE)
[2025-01-23 09:30] LABS: SQUAMOUS EPITHELIAL CELLS,UR MANY /HPF
[2025-01-23 09:33] LABS: A/G RATIO 0.7 (1.2-2.2); ALANINE AMINOTRANSFERASE,ALT 35 U/L (12-78); ASPARTATE AMNIOTRANSFERASE,AST 55 U/L (15-37); BILIRUBIN TOTAL 0.6 mg/dL (0.2-1.0); BLOOD UREA NITROGEN,BUN 8 mg/dL (7-18); CARBON DIOXIDE,CO2 27 mmol/L (21-32); CHLORIDE,CL 104 mmol/L (100-108); CREATININE 0.8 mg/dL (0.6-1.0); ESTIMATED GFR 93 mL/min (>60); GLUCOSE RANDOM 96 mg/dL (74-106); PROTEIN TOTAL,TP 7.5 g/dL (6.4-8.2); SODIUM,NA 144 mmol/L (140-148)
[2025-01-23 09:35] LABS: POTASSIUM,K 2.7 mmol/L (3.6-5.2)
[2025-01-23] MEDS: Potassium Chloride 20 MEQ Tab.ER PO ONE (10:06)
[2025-01-23 10:33] VITALS: BP 129/83; PULSE 88
== END 2025-01-23 12:45 | disposition other institution (70) ==
LOC: JP.ED 08:41
DX: F10.129 Alcohol abuse with intoxication, unspecified (principal); Z86.16 Personal history of COVID-19; Y90.8 Blood alcohol level of 240 mg/100 ml or more
CPT/HCPCS: 36415; 80053; 80305; 80307; 81001; 85025; 96360; 99284; 99285; A9270; J7030